=== PATIENT | male | born 1955 | race Caucasian/White ===

== ENCOUNTER 2018-10-08 02:00 | Inpatient (IN) | payer OTHER | END 2018-10-10 14:55 | disposition home or self-care (01) | LOC: ER 02:00 → PCU 3S 10-09 11:26 → ED HOLD 04:54 → CICU 2S 05:33 | DX: I21.4 Non-ST elevation (NSTEMI) myocardial infarction (principal); I10 Essential (primary) hypertension; J44.9 Chronic obstructive pulmonary disease, unspecified ==

== ENCOUNTER 2019-04-26 11:29 | Inpatient (IN) | payer OTHER ==
[~2019-04-26] VITALS: Ht 182.9 cm; Wt 111.3 kg
[~2019-04-26 11:29] MED LIST: ALBU8.5H8 INH; ASPI-611 PO; ATOR40TA PO; BUDE10.2 INH; FLO0.4C PO; METO75TA PO; NITR0.4T51 SL; TICA90TA PO
[2019-04-26] MEDS ORDERED: ipratropium/albuterol 3ml nebule NEB ONE (11:40)
[2019-04-26] MEDS ORDERED: albuterol 2.5 MG/3 ML nebule NEB ONE (11:40)
[2019-04-26 12:12] LABS: EOSINOPHILS # (AUTO) 0.5 X10'3 (0-0.9); EOSINOPHILS % (AUTO) 5.9 % (0-6); LYMPHOCYTES # (AUTO) 0.8 X10'3 (1.1-4.8); MEAN CORPUSCULAR HGB CONC 32.8 g/dL (33.0-36.5); MEAN CORPUSCULAR VOLUME 90.7 FL (78-98); MEAN PLATELET VOLUME 6.7 FL (7.4-10.4); MONOCYTES # (AUTO) 0.7 X10'3 (0-0.9)
[2019-04-26 12:15] LABS: BASOPHILS # (AUTO) 0.1 X10'3 (0-0.2); BASOPHILS % (AUTO) 0.7 % (0-1); HEMATOCRIT 41.5 % (42.0-52.0); HEMOGLOBIN 13.6 g/dl (14.0-17.9); LYMPHOCYTES % (AUTO) 8.6 % (21-51); MEAN CORPUSCULAR HEMOGLOBIN 29.8 PG (27.0-31.0); MONOCYTES % (AUTO) 7.6 % (2-12); NEUTROPHILS # (AUTO) 6.9 X10'3 (1.8-7.7); NEUTROPHILS % (AUTO) 77.2 % (42-75); PLATELET COUNT 186 X10'3 (140-440); RED BLOOD COUNT 4.58 X10'6 (4.70-6.10); RED CELL DISTRIBUTION WIDTH 14.4 % (11.5-14.5); WHITE BLOOD COUNT 8.9 X10'3 (4.5-11.0)
[2019-04-26 12:31] LABS: ALANINE AMINOTRANSFERASE 29 U/L (12-78); ALBUMIN 3.3 G/DL (3.4-5.0); ALKALINE PHOSPHATASE 78 IU/L (46-116); ANION GAP 7 (8-16); ASPARTATE AMINO TRANSFERASE 18 U/L (10-37); BILIRUBIN,TOTAL 0.4 MG/DL (0.1-1.0); BLOOD UREA NITROGEN 16 MG/DL (7-18); BUN/CREATININE RATIO 18.6 (5.4-32.0); CALCIUM 8.4 MG/DL (8.5-10.1); CHLORIDE 109 MMOL/L (99-107); CREATININE 0.86 MG/DL (0.60-1.10); GLUCOSE 103 MG/DL (70-104); POTASSIUM 4.4 MMOL/L (3.5-5.1); SODIUM 144 MMOL/L (135-145); TOTAL PROTEIN 6.5 G/DL (6.4-8.2); eGFR 90 ML/MIN
[2019-04-26 12:46] LABS: MAGNESIUM 1.9 MG/DL (1.5-2.4)
[2019-04-26 13:00] LABS: LIPASE 8639 U/L (73-393)
[2019-04-26] MEDS ORDERED: magnesium hydroxide 30ml (MOM) UD suspension PO PRN (13:00)
[2019-04-26] MEDS ORDERED: methylPREDNISolone sod succ 125mg/2ml vial IV ONE (13:00)
[2019-04-26] MEDS ORDERED: HYDROcodone/acetaminophen 5mg/325mg tablet PO PRN (13:00)
[2019-04-26] MEDS ORDERED: bisacodyl 10mg suppository rectal RC PRN (13:00)
[2019-04-26] MEDS ORDERED: HYDROcodone/acetaminophen 10/325mg tab PO PRN (13:00)
[2019-04-26] MEDS ORDERED: potassium Cl 20 mEq SR tablet PO PRN ×2 (13:00)
[2019-04-26] MEDS ORDERED: magnesium 4gm in 100ml NS 100 ML IV PRN (13:00)
[2019-04-26] MEDS ORDERED: magnesium Cl slow-release 64mg tablet PO PRN (13:00)
[2019-04-26] MEDS ORDERED: ondansetron/PF 4mg/2ml inj IV PRN (13:00)
[2019-04-26] MEDS ORDERED: mag hydrox/Alum hydrox/simeth 30ml oral suspension PO PRN (13:00)
[2019-04-26] MEDS ORDERED: metoclopramide 5 mg/ml inj IV PRN (13:00)
[2019-04-26] MEDS ORDERED: ipratropium/albuterol 3ml nebule NEB PRN (13:00)
[2019-04-26] MEDS ORDERED: magnesium 2GM in 50ml NS 50 ML IV PRN (13:00)
[2019-04-26] MEDS ORDERED: potassium CL 10mEq/100ml bag 100 ML IV PRN ×2 (13:00)
[2019-04-26] MEDS ORDERED: acetaminophen 325mg tablet PO PRN (13:00)
[2019-04-26] MEDS: K and/or MAG REPLACEMENT MC SCH (13:00)
[2019-04-26] MEDS: normal saline 1000ml 1,000 ML IV SCH ×3 (13:14→23:01)
[2019-04-26] MEDS ORDERED: regadenoson 0.4mg/5ml syringe IV PRN (14:15)
[2019-04-26] MEDS ORDERED: metoprolol tartrate 1mg/ml inj IV PRN (14:15)
[2019-04-26] MEDS ORDERED: nitroGLYCERIN 0.4mg SUBLingual tab SL PRN ×3 (14:15→14:20)
[2019-04-26] MEDS ORDERED: aminophylline 250mg/10ml inj. IV PRN (14:15)
[2019-04-26] MEDS: methylPREDNISolone sod succ 125mg/2ml vial IV SCH ×2 (14:48→20:44)
[2019-04-26] MEDS ORDERED: iohexol 300mg/ml 100ml inj. ONE (14:51)
[2019-04-26 15:00] VITALS: BP 129/77
[2019-04-26] MEDS: albuterol 2.5 MG/3 ML nebule NEB SCH ×2 (15:00→21:00)
[2019-04-26] MEDS: ipratropium/albuterol 3ml nebule NEB SCH ×3 (15:46→23:00)
--- NOTE | 2019-04-26 16:07 | NUR ---
PAGER ID: [phone] MESSAGE: [phone]. Pt's CT scan results are up. Thank You.
[2019-04-26] MEDS: acetaminophen 325mg tablet PO PRN (16:16)
[2019-04-26 16:25] LABS: PARTIAL THROMBOPLASTIN TIME 31 SECONDS (22-32)
--- NOTE | 2019-04-26 18:05 | NUR ---
Orienteer documentation: I have reviewed and agree with all interventions, assessments performed and documented by Veronica FERNANDEZ.
--- NOTE | 2019-04-26 18:22 | NUR ---
Problems reprioritized. Patient report given, questions answered & plan of care reviewed with Deisi FERNANDEZ.
[2019-04-26 19:00] VITALS: BP 104/82
[2019-04-26] MEDS ORDERED: non-formulary drug (Metoprolol Tartrate 1 TAB) PO SCH (20:00)
[2019-04-26] MEDS ORDERED: non-formulary drug (Budesonide/Formoterol Fumarate (Symbicort 160-4.5 Mcg Inhaler) 2 PUFFS INH SCH (20:00)
[2019-04-26] MEDS ORDERED: non-formulary drug (Aspirin (Aspir 81) 1 TAB) PO SCH (20:00)
[2019-04-26] MEDS: budesonide 0.5mg/2ml UD nebule IH SCH (20:11)
[2019-04-26] MEDS: metoprolol tartrate 25mg tablet PO SCH (20:43)
[2019-04-26] MEDS: aspirin 81mg tablet.DR PO SCH (20:43)
[2019-04-26] MEDS: ticagrelor 90mg tablet PO SCH (20:43)
[2019-04-26] MEDS ORDERED: temazepam 15mg capsule PO PRN (21:00)
[2019-04-26] MEDS ORDERED: benzonatate 100mg capsule PO PRN (22:35)
--- NOTE | 2019-04-26 22:40 | NUR ---
PATIENT REQUESTING COUDH DROPS-- MD NOTIFIED AND ORDERS RECEIVED
[2019-04-26 23:00] VITALS: BP 115/64
[2019-04-27] MEDS: methylPREDNISolone sod succ 125mg/2ml vial IV SCH ×4 (02:09→21:44)
[2019-04-27 03:00] VITALS: BP 140/86
[2019-04-27 05:32] LABS: HEMATOCRIT 40.6 % (42.0-52.0); HEMOGLOBIN 13.5 g/dl (14.0-17.9); MEAN CORPUSCULAR HEMOGLOBIN 30.2 PG (27.0-31.0); MEAN CORPUSCULAR HGB CONC 33.2 g/dL (33.0-36.5); MEAN PLATELET VOLUME 7.3 FL (7.4-10.4); PLATELET COUNT 173 X10'3 (140-440); RED BLOOD COUNT 4.46 X10'6 (4.70-6.10); RED CELL DISTRIBUTION WIDTH 14.5 % (11.5-14.5); WHITE BLOOD COUNT 7.4 X10'3 (4.5-11.0)
[2019-04-27 05:37] LABS: ALBUMIN 3.1 G/DL (3.4-5.0); ANION GAP 8 (8-16); BLOOD UREA NITROGEN 13 MG/DL (7-18); BUN/CREATININE RATIO 20.3 (5.4-32.0); CALCIUM 8.3 MG/DL (8.5-10.1); CHLORIDE 112 MMOL/L (99-107); CHOL/HDL RATIO 2.6 (0.00-4.99); CHOLESTEROL 114 MG/DL (0-200); CREATININE 0.64 MG/DL (0.60-1.10); GLUCOSE 117 MG/DL (70-104); HDL CHOLESTEROL 44 MG/DL (35-60); LDL CHOLESTEROL 60 MG/DL (50-100); MAGNESIUM 1.9 MG/DL (1.5-2.4); PHOSPHORUS 2.9 MG/DL (2.3-4.5); POTASSIUM 4.2 MMOL/L (3.5-5.1); SODIUM 144 MMOL/L (135-145); TOTAL CARBON DIOXIDE 24.3 MMOL/L (24-32); TRIGLYCERIDES 52 MG/DL (20-135); eGFR > 90 ML/MIN
[2019-04-27 06:00] VITALS: BP 133/72
--- NOTE | 2019-04-27 06:49 | NUR ---
Patient in room PCU 3013. I have received report from Deisi and had the opportunity to ask questions and assume patient care.
[2019-04-27] MEDS: ipratropium/albuterol 3ml nebule NEB SCH ×5 (07:34→23:00)
[2019-04-27] MEDS: budesonide 0.5mg/2ml UD nebule IH SCH ×2 (07:34→19:53)
[2019-04-27] MEDS: aspirin 81mg tablet.DR PO SCH ×2 (07:38→21:42)
[2019-04-27] MEDS: atorvastatin 20mg tablet PO SCH (07:39)
[2019-04-27] MEDS: tamsulosin 0.4mg capsule PO SCH (07:39)
[2019-04-27] MEDS: ticagrelor 90mg tablet PO SCH ×2 (07:40→21:43)
[2019-04-27] MEDS: nitroGLYCERIN 0.4mg/hour patch TD SCH (07:43)
[2019-04-27] MEDS ORDERED: non-formulary drug (Atorvastatin Calcium* (Lipitor*) 1 TAB) PO SCH (08:00)
[2019-04-27] MEDS: K and/or MAG REPLACEMENT MC SCH (08:00)
[2019-04-27] MEDS: enoxaparin 40mg/0.4ml syringe SUBCUT SCH (08:03)
[2019-04-27] MEDS: metoprolol tartrate 25mg tablet PO SCH ×2 (08:04→21:43)
[2019-04-27 10:31] LABS: AMYLASE 75 U/L (25-115)
[2019-04-27] MEDS: normal saline 1000ml 1,000 ML IV SCH ×2 (10:48→21:44)
[2019-04-27 11:00] VITALS: BP 121/70
--- NOTE | 2019-04-27 13:36 | NUR ---
Page sent: [id number] Yosef Sifuentes. Patient is requesting a breathing treatment. Thank you REBECCA Schmid [phone]
[2019-04-27] MEDS: acetaminophen 325mg tablet PO PRN (16:57)
[2019-04-27] MEDS ORDERED: CefTRIAXone/D5W-Rocephin 1gm 50 ML IV ONE (17:30)
--- NOTE | 2019-04-27 18:19 | NUR ---
Orientee documentation: I have reviewed and agree with interventions, assessments performed and documented by Sharmaine MAYA. Orientee Medication Administration: For this medication-pass time frame, medication were reviewed, dispensed, administered and documented per hospital policy by Sharmaine Maya.
--- NOTE | 2019-04-27 18:28 | NUR ---
Problems reprioritized. Patient report given, questions answered & plan of care reviewed with Michelle. Patient in stable condition.
--- NOTE | 2019-04-27 18:30 | NUR ---
Patient in room PCU 3013. I have received report from Mariola FERNANDEZ and had the opportunity to ask questions and assume patient care with Maggie FERNANDEZ.
[2019-04-27 19:00] VITALS: BP 140/68
[2019-04-27] MEDS: albuterol 2.5 MG/3 ML nebule NEB SCH (19:51)
[2019-04-27 23:00] VITALS: BP 127/75
[2019-04-28] VITALS (13 sets, daily range): BP systolic 91–151; BP diastolic 53–85
[2019-04-28] MEDS: methylPREDNISolone sod succ 125mg/2ml vial IV SCH ×4 (02:17→20:10)
[2019-04-28] MEDS: albuterol 2.5 MG/3 ML nebule NEB SCH (02:40)
[2019-04-28 06:05] LABS: HEMATOCRIT 40.6 % (42.0-52.0); HEMOGLOBIN 13.5 g/dl (14.0-17.9); MEAN CORPUSCULAR HEMOGLOBIN 29.9 PG (27.0-31.0); MEAN CORPUSCULAR HGB CONC 33.2 g/dL (33.0-36.5); MEAN CORPUSCULAR VOLUME 90.1 FL (78-98); MEAN PLATELET VOLUME 6.9 FL (7.4-10.4); PLATELET COUNT 193 X10'3 (140-440); RED CELL DISTRIBUTION WIDTH 14.2 % (11.5-14.5); WHITE BLOOD COUNT 11.8 X10'3 (4.5-11.0)
[2019-04-28 06:13] LABS: ANION GAP 6 (8-16); BLOOD UREA NITROGEN 12 MG/DL (7-18); CALCIUM 8.3 MG/DL (8.5-10.1); CHLORIDE 112 MMOL/L (99-107); CREATININE 0.75 MG/DL (0.60-1.10); GLUCOSE 142 MG/DL (70-104); PHOSPHORUS 3.4 MG/DL (2.3-4.5); POTASSIUM 4.1 MMOL/L (3.5-5.1); SODIUM 145 MMOL/L (135-145); TOTAL CARBON DIOXIDE 26.6 MMOL/L (24-32); eGFR > 90 ML/MIN
--- NOTE | 2019-04-28 06:26 | NUR ---
Patient in room PCU 3011. I have received report from Michelle FERNANDEZ and had the opportunity to ask questions and assume patient care.
--- NOTE | 2019-04-28 06:30 | NUR ---
pt rested through night, no complaints
--- NOTE | 2019-04-28 06:33 | NUR ---
Problems reprioritized. Patient report given, questions answered & plan of care reviewed with kd FERNANDEZ. pt resting, no signs of distress.
--- NOTE | 2019-04-28 06:43 | NUR ---
Patient in room PCU 3013. I have received report from Michelle and had the opportunity to ask questions and assume patient care.
[2019-04-28] MEDS: ticagrelor 90mg tablet PO SCH ×2 (07:19→20:12)
[2019-04-28] MEDS: tamsulosin 0.4mg capsule PO SCH (07:19)
[2019-04-28] MEDS: metoprolol tartrate 25mg tablet PO SCH ×2 (07:19→20:13)
[2019-04-28] MEDS: atorvastatin 20mg tablet PO SCH (07:20)
[2019-04-28] MEDS: aspirin 81mg tablet.DR PO SCH ×2 (07:20→20:12)
[2019-04-28] MEDS: CefTRIAXone/D5W-Rocephin 1gm 50 ML IV SCH (07:21)
[2019-04-28] MEDS: nitroGLYCERIN 0.4mg/hour patch TD SCH (07:21)
[2019-04-28] MEDS: enoxaparin 40mg/0.4ml syringe SUBCUT SCH (07:22)
[2019-04-28] MEDS: K and/or MAG REPLACEMENT MC SCH (08:00)
[2019-04-28] MEDS: ipratropium/albuterol 3ml nebule NEB SCH ×5 (08:03→23:20)
[2019-04-28] MEDS: budesonide 0.5mg/2ml UD nebule IH SCH (08:03)
[2019-04-28] MEDS: normal saline 1000ml 1,000 ML IV SCH ×2 (09:07→20:09)
[2019-04-28] MEDS: azithromycin 250mg tablet PO SCH (10:18)
--- NOTE | 2019-04-28 10:36 | NUR ---
Page sent: [id number] Bear Navas - Patient has a new order for an abdominal ultrasound, BALWINDER
--- NOTE | 2019-04-28 17:14 | NUR ---
Page sent PAGER ID: [phone] MESSAGE: [phone] Yosef Sifuentes. Patient is requesting to eat. Arline scan results are up. Can he eat? Thank you Thao WOODRUFF
--- NOTE | 2019-04-28 18:12 | NUR ---
Problems reprioritized. Patient report given, questions answered & plan of care reviewed with
--- NOTE | 2019-04-28 18:22 | NUR ---
Orientee documentation: I have reviewed and agree with interventions, assessments performed and documented by Sharmaine FERNANDEZ. Orientee Medication Administration: For this medication-pass time frame, medication were reviewed, dispensed, administered and documented per hospital policy by Sharmaine FERNANDEZ.
--- NOTE | 2019-04-28 18:30 | NUR ---
Patient in room PCU 3013. I have received report from day shift RN and had the opportunity to ask questions and assume patient care with Maggie FERNANDEZ.
[2019-04-29] MEDS: methylPREDNISolone sod succ 125mg/2ml vial IV SCH ×4 (01:37→19:56)
[2019-04-29 02:00] VITALS: BP 134/72
[2019-04-29] MEDS: ipratropium/albuterol 3ml nebule NEB SCH ×6 (04:00→23:05)
--- NOTE | 2019-04-29 05:00 | NUR ---
Patient rested all night, no complaints
[2019-04-29 05:20] LABS: HEMATOCRIT 41.3 % (42.0-52.0); HEMOGLOBIN 13.7 g/dl (14.0-17.9); MEAN CORPUSCULAR HEMOGLOBIN 30.2 PG (27.0-31.0); MEAN CORPUSCULAR HGB CONC 33.2 g/dL (33.0-36.5); MEAN CORPUSCULAR VOLUME 90.9 FL (78-98); PLATELET COUNT 186 X10'3 (140-440); RED BLOOD COUNT 4.54 X10'6 (4.70-6.10); RED CELL DISTRIBUTION WIDTH 14.2 % (11.5-14.5); WHITE BLOOD COUNT 9.1 X10'3 (4.5-11.0)
[2019-04-29 05:31] LABS: ALBUMIN 2.8 G/DL (3.4-5.0); ANION GAP 7 (8-16); BLOOD UREA NITROGEN 14 MG/DL (7-18); BUN/CREATININE RATIO 16.7 (5.4-32.0); CALCIUM 8.4 MG/DL (8.5-10.1); CHLORIDE 111 MMOL/L (99-107); CREATININE 0.84 MG/DL (0.60-1.10); GLUCOSE 145 MG/DL (70-104); MAGNESIUM 2.1 MG/DL (1.5-2.4); PHOSPHORUS 3.2 MG/DL (2.3-4.5); SODIUM 146 MMOL/L (135-145); TOTAL CARBON DIOXIDE 28.4 MMOL/L (24-32); eGFR > 90 ML/MIN
--- NOTE | 2019-04-29 06:08 | NUR ---
Problems reprioritized. Patient report given, questions answered & plan of care reviewed with Kristy FERNANDEZ. orientee documentation: I have reviewed and agree with all interventions, assessments performed and documented by Maggie FERNANDEZ.
--- NOTE | 2019-04-29 06:12 | NUR ---
Patient in room PCU 3013. I have received report from REBECCA Martinez and had the opportunity to ask questions and assume patient care.
[2019-04-29 07:00] VITALS: BP 154/68
[2019-04-29] MEDS: normal saline 1000ml 1,000 ML IV SCH (07:49)
[2019-04-29] MEDS: K and/or MAG REPLACEMENT MC SCH (08:00)
--- NOTE | 2019-04-29 08:20 | NUR ---
Patient went in to atrial flutter, rate 170's. Complains of some chest pain (discomfort) and rt elbow discomfort. No sob. pain 12/17. Dr. Arreola paged and informed.
--- NOTE | 2019-04-29 08:34 | NUR ---
MESSAGE: Mr. Sifuentes RM 3014P In atrial flutter, rate 170's. Complains of sternal discomfort, rt elbow discomfort 12/17. BP 144/82. Kristy u ext [phone]
--- NOTE | 2019-04-29 08:50 | NUR ---
Mr. Sifuentes 3012B - Converted to NSR, rate 110's. Thanks, Kristy [facility] X [phone]
--- NOTE | 2019-04-29 08:50 | NUR ---
Seen by PA and orders written.
[2019-04-29] MEDS: CefTRIAXone/D5W-Rocephin 1gm 50 ML IV SCH (08:59)
[2019-04-29] MEDS: tamsulosin 0.4mg capsule PO SCH (09:00)
[2019-04-29] MEDS: atorvastatin 20mg tablet PO SCH (09:01)
[2019-04-29] MEDS: azithromycin 250mg tablet PO SCH (09:01)
[2019-04-29] MEDS: enoxaparin 40mg/0.4ml syringe SUBCUT SCH (09:01)
[2019-04-29] MEDS: nitroGLYCERIN 0.4mg/hour patch TD SCH (09:02)
[2019-04-29] MEDS: apixaban 5mg tablet PO SCH ×2 (09:13→19:53)
[2019-04-29] MEDS: carVEDilol 12.5mg tablet PO SCH ×2 (09:14→19:53)
[2019-04-29] MEDS: clopidogrel 75mg tablet PO SCH (09:14)
[2019-04-29 11:00] VITALS: BP 144/80
[2019-04-29 15:00] VITALS: BP 117/75
--- NOTE | 2019-04-29 18:20 | NUR ---
Problems reprioritized. Patient report given, questions answered & plan of care reviewed with REBECCA Samaniego. Addendum: 04/29/19 at 1824 by Kristy Zayas RN Report given to rita Thorpe.
--- NOTE | 2019-04-29 18:25 | NUR ---
Patient in room PCU 3013. I have received report from Kristy FERNANDEZ and had the opportunity to ask questions and assume patient care.
--- NOTE | 2019-04-29 18:30 | NUR ---
patient reported 5/10 pain and headache. patient requested tylenol.
[2019-04-29 19:00] VITALS: BP 120/63
--- NOTE | 2019-04-29 19:30 | NUR ---
reassessed patient's pain level. patient reported pain 0/10. patient no longer has a headache.
[2019-04-29] MEDS: acetaminophen 325mg tablet PO PRN (20:04)
[2019-04-29 22:00] VITALS: BP 124/80
--- NOTE | 2019-04-29 23:43 | NUR ---
patient converted to a fib, reported to Dr. Patterson. He's aware the patient is on eliquis
[2019-04-30] MEDS: methylPREDNISolone sod succ 125mg/2ml vial IV SCH ×2 (01:13→07:42)
[2019-04-30 02:00] VITALS: BP 117/74
[2019-04-30] MEDS: ipratropium/albuterol 3ml nebule NEB SCH ×3 (03:10→12:00)
--- NOTE | 2019-04-30 05:58 | NUR ---
Orientee documentation: I have reviewed and agree with all interventions, assessments performed and documented by Maggie FERNANDEZ .
[2019-04-30 06:00] VITALS: BP 148/90
[2019-04-30 06:06] LABS: HEMATOCRIT 41.9 % (42.0-52.0); MEAN CORPUSCULAR HEMOGLOBIN 30.4 PG (27.0-31.0); MEAN CORPUSCULAR HGB CONC 33.5 g/dL (33.0-36.5); MEAN CORPUSCULAR VOLUME 90.9 FL (78-98); MEAN PLATELET VOLUME 7.3 FL (7.4-10.4); PLATELET COUNT 190 X10'3 (140-440); RED BLOOD COUNT 4.61 X10'6 (4.70-6.10); RED CELL DISTRIBUTION WIDTH 14.5 % (11.5-14.5)
--- NOTE | 2019-04-30 06:07 | NUR ---
Problems reprioritized. Patient report given to Kristy FERNANDEZ, questions answered & plan of care reviewed with Kristy FERNANDEZ.
--- NOTE | 2019-04-30 06:20 | NUR ---
Patient in room PCU 3013. I have received report from REBECCA Serrano and had the opportunity to ask questions and assume patient care.
[2019-04-30 06:38] LABS: ALBUMIN 2.9 G/DL (3.4-5.0); ANION GAP 8 (8-16); BLOOD UREA NITROGEN 17 MG/DL (7-18); BUN/CREATININE RATIO 19.8 (5.4-32.0); CALCIUM 8.5 MG/DL (8.5-10.1); CHLORIDE 109 MMOL/L (99-107); CREATININE 0.86 MG/DL (0.60-1.10); GLUCOSE 149 MG/DL (70-104); MAGNESIUM 2.2 MG/DL (1.5-2.4); PHOSPHORUS 3.8 MG/DL (2.3-4.5); POTASSIUM 3.9 MMOL/L (3.5-5.1); SODIUM 144 MMOL/L (135-145); eGFR 90 ML/MIN
[2019-04-30] MEDS: nitroGLYCERIN 0.4mg/hour patch TD SCH (07:42)
[2019-04-30] MEDS: atorvastatin 20mg tablet PO SCH (07:42)
[2019-04-30] MEDS: clopidogrel 75mg tablet PO SCH (07:43)
[2019-04-30] MEDS: apixaban 5mg tablet PO SCH (07:43)
[2019-04-30] MEDS: azithromycin 250mg tablet PO SCH (07:43)
[2019-04-30] MEDS: carVEDilol 12.5mg tablet PO SCH (07:43)
[2019-04-30] MEDS: CefTRIAXone/D5W-Rocephin 1gm 50 ML IV SCH (07:43)
[2019-04-30] MEDS: tamsulosin 0.4mg capsule PO SCH (07:43)
[2019-04-30] MEDS: K and/or MAG REPLACEMENT MC SCH (07:44)
[2019-04-30] MEDS ORDERED: CARV-50 PO (10:53)
[2019-04-30] MEDS ORDERED: PRED10TA23 PO (10:53)
[2019-04-30] MEDS ORDERED: APIX5TAB3 PO (10:53)
[2019-04-30] MEDS ORDERED: CEFD300C3 PO (10:53)
[2019-04-30] MEDS ORDERED: ISOS30TA6 PO (10:56)
[2019-04-30 11:00] VITALS: BP 116/67
== END 2019-04-30 13:20 | disposition home or self-care (01) | DRG 189 ==
LOC: ER 11:30 → OBSVTOIN 13:50 → PCU 3S 13:50 → CMPBEDREQ 04-27 21:12
PROVIDERS: ADMIT Family Medicine; ATTEND Family Medicine
PROC: 4A02XM4 Measurement of Cardiac Total Activity, External Approach (ICD-10-PCS; principal; 2019-04-28)
PROC: 3E033HZ Introduction of Radioactive Substance into Peripheral Vein, Percutaneous Approach (ICD-10-PCS; 2019-04-28)
DX: J96.90 Respiratory failure, unspecified, unspecified whether with hypoxia or hypercapnia (principal); K85.90 Acute pancreatitis without necrosis or infection, unspecified; J44.1 Chronic obstructive pulmonary disease with (acute) exacerbation; I48.92 Unspecified atrial flutter; K21.9 Gastro-esophageal reflux disease without esophagitis; E78.00 Pure hypercholesterolemia, unspecified; E78.5 Hyperlipidemia, unspecified; G40.909 Epilepsy, unspecified, not intractable, without status epilepticus; I10 Essential (primary) hypertension; G89.29 Other chronic pain; K76.9 Liver disease, unspecified; R74.8 Abnormal levels of other serum enzymes; I25.119 Atherosclerotic heart disease of native coronary artery with unspecified angina pectoris; I48.0 Paroxysmal atrial fibrillation; N40.0 Benign prostatic hyperplasia without lower urinary tract symptoms; Z87.891 Personal history of nicotine dependence; I25.2 Old myocardial infarction; Z90.49 Acquired absence of other specified parts of digestive tract; Z93.3 Colostomy status; Z95.5 Presence of coronary angioplasty implant and graft
CPT/HCPCS: 36415; 71045; 71260; 74177; 76700; 78452; 80048; 80053; 80061; 82150; 83690; 83735; 83880; 84100; 84484; 85025; 85027; 85610; 85730; 87040; 87070; 87081; 93005; 93017; 93306; 94640; 94667; 94760; 96374; 99285; A9500; G0378; J0696; J1650; J2785; J2930; J7030; J7626; Q9967

== ENCOUNTER 2019-06-04 12:42 | Inpatient (IN) | payer OTHER ==
[~2019-06-04] VITALS: Ht 193 cm; Wt 115.0 kg
[~2019-06-04 12:42] MED LIST changes: +APIX5TAB3 PO; +CARV-50 PO; -METO75TA PO
[2019-06-04] MEDS ORDERED: ipratropium/albuterol 3ml nebule NEB ONE (12:55)
[2019-06-04] MEDS ORDERED: methylPREDNISolone sod succ 125mg/2ml vial IV ONE (13:00)
[2019-06-04 13:14] LABS: BASOPHILS # (AUTO) 0.1 X10'3 (0-0.2); BASOPHILS % (AUTO) 0.8 % (0-1); EOSINOPHILS # (AUTO) 0.3 X10'3 (0-0.9); EOSINOPHILS % (AUTO) 4.2 % (0-6); HEMATOCRIT 42.8 % (42.0-52.0); HEMOGLOBIN 14.1 g/dl (14.0-17.9); LYMPHOCYTES # (AUTO) 0.8 X10'3 (1.1-4.8); LYMPHOCYTES % (AUTO) 11.6 % (21-51); MEAN CORPUSCULAR HEMOGLOBIN 29.9 PG (27.0-31.0); MEAN CORPUSCULAR VOLUME 90.8 FL (78-98); MEAN PLATELET VOLUME 6.7 FL (7.4-10.4); MONOCYTES # (AUTO) 0.8 X10'3 (0-0.9); MONOCYTES % (AUTO) 11.3 % (2-12); NEUTROPHILS # (AUTO) 5.1 X10'3 (1.8-7.7); NEUTROPHILS % (AUTO) 72.1 % (42-75); PLATELET COUNT 202 X10'3 (140-440); RED BLOOD COUNT 4.71 X10'6 (4.70-6.10); RED CELL DISTRIBUTION WIDTH 14.7 % (11.5-14.5); WHITE BLOOD COUNT 7.1 X10'3 (4.5-11.0)
[2019-06-04] MEDS ORDERED: iohexol 350MG/ML 100ml bottle IV ONE ×3 (13:28→13:55)
[2019-06-04 13:29] LABS: PARTIAL THROMBOPLASTIN TIME 30 SECONDS (22-32)
[2019-06-04 13:39] LABS: ALANINE AMINOTRANSFERASE 30 U/L (12-78); ALBUMIN 3.8 G/DL (3.4-5.0); ALBUMIN/GLOBULIN RATIO 1.1 (1.1-1.5); ANION GAP 9 (8-16); ASPARTATE AMINO TRANSFERASE 23 U/L (10-37); BILIRUBIN,TOTAL 0.7 MG/DL (0.1-1.0); BLOOD UREA NITROGEN 14 MG/DL (7-18); BUN/CREATININE RATIO 15.9 (5.4-32.0); CALCIUM 9.2 MG/DL (8.5-10.1); CHLORIDE 104 MMOL/L (99-107); CREATININE 0.88 MG/DL (0.60-1.10); GLUCOSE 106 MG/DL (70-104); POTASSIUM 4.3 MMOL/L (3.5-5.1); SODIUM 140 MMOL/L (135-145); TOTAL CARBON DIOXIDE 26.6 MMOL/L (24-32); TOTAL PROTEIN 7.3 G/DL (6.4-8.2); eGFR 88 ML/MIN
--- NOTE | 2019-06-04 13:41 | NUR ---
PT IS IN CT
[2019-06-04 13:47] LABS: MAGNESIUM 2.1 MG/DL (1.5-2.4)
[2019-06-04 14:18] LABS: ALKALINE PHOSPHATASE 90 IU/L (46-116)
[2019-06-04] MEDS ORDERED: TRAM50TA2 PO (14:28)
[2019-06-04 14:41] LABS: CLARITY,URINE CLEAR (Clear); COLOR,URINE YELLOW (Yellow); GLUCOSE, URINE NEGATIVE (Neg); KETONES,URINE NEGATIVE (Neg); LEUKOCYTE ESTERASE ,URINE NEGATIVE (Neg); NITRITES, URINE NEGATIVE (Neg); OCCULT BLOOD,URINE NEGATIVE (Neg); PH,URINE 5.5 (4.8-8.0); PROTEIN,URINE NEGATIVE (Neg); UA COLLECTION TYPE CLN CATCH MIDSTREAM; UROBILINOGEN,URINE 0.2 E.U/dL (0.2-1.0)
[2019-06-04] MEDS ORDERED: levoFLOXACIN-Levaquin 750MG/D5 150 ML IV ONE (15:05)
[2019-06-04] MEDS ORDERED: CARV6.252 PO (15:31)
[2019-06-04] MEDS ORDERED: CLOP75TA15 PO (15:37)
[2019-06-04] MEDS ORDERED: ATOR40TA71 PO (15:37)
[2019-06-04] MEDS ORDERED: TIOT4MIS3 IH (15:37)
[2019-06-04] MEDS ORDERED: DABI150C PO (15:37)
[2019-06-04] MEDS ORDERED: ISOS30TA6 PO (15:37)
[2019-06-04] MEDS ORDERED: NITR0.4T48 SL (15:37)
[2019-06-04] MEDS ORDERED: mag hydrox/Alum hydrox/simeth 30ml oral suspension PO PRN (16:55)
[2019-06-04] MEDS ORDERED: magnesium hydroxide 30ml (MOM) UD suspension PO PRN (16:55)
[2019-06-04] MEDS ORDERED: morphine 2 MG/ML inj. syringe IV PRN ×2 (16:55)
[2019-06-04] MEDS ORDERED: potassium CL 10mEq/100ml bag 100 ML IV PRN ×2 (16:55)
[2019-06-04] MEDS ORDERED: non-formulary drug (Albuterol Sulfate (Proair Hfa) 2 PUFFS) INH PRN (16:55)
[2019-06-04] MEDS ORDERED: ondansetron/PF 4mg/2ml inj IV PRN (16:55)
[2019-06-04] MEDS ORDERED: diphenhydrAMINE 25mg capsule PO PRN (16:55)
[2019-06-04] MEDS ORDERED: potassium Cl 20 mEq SR tablet PO PRN ×2 (16:55)
[2019-06-04] MEDS ORDERED: guaiFENesin/DM/phenylephrine syrup 120ml bottle PO PRN (16:55)
[2019-06-04] MEDS ORDERED: HYDROcodone/acetaminophen 5mg/325mg tablet PO PRN (16:55)
[2019-06-04] MEDS ORDERED: magnesium 4gm in 100ml NS 100 ML IV PRN (16:55)
[2019-06-04] MEDS ORDERED: nitroGLYCERIN 0.4mg SUBLingual tab SL PRN (16:55)
[2019-06-04] MEDS ORDERED: acetaminophen 325mg tablet PO PRN ×2 (16:55)
[2019-06-04] MEDS ORDERED: bisacodyl 10mg suppository rectal RC PRN (16:55)
[2019-06-04] MEDS ORDERED: magnesium Cl slow-release 64mg tablet PO PRN (16:55)
[2019-06-04] MEDS ORDERED: diphenhydrAMINE 50 mg/ml inj IV PRN (16:55)
[2019-06-04] MEDS ORDERED: acetaminophen 650mg rectal suppository RC PRN (16:55)
[2019-06-04] MEDS ORDERED: magnesium 2GM in 50ml NS 50 ML IV PRN (16:55)
[2019-06-04] MEDS ORDERED: albuterol 2.5 MG/3 ML nebule NEB PRN (17:00)
[2019-06-04] MEDS: normal saline 1000ml 1,000 ML IV SCH (17:20)
[2019-06-04] MEDS: K and/or MAG REPLACEMENT MC SCH (18:37)
[2019-06-04] MEDS: ipratropium/albuterol 3ml nebule NEB SCH ×2 (18:51→23:09)
[2019-06-04 19:25] VITALS: BP 135/76
--- NOTE | 2019-06-04 19:25 | NUR ---
PATIENT ADMITTED TO ROOM 354A FROM ER FOR COPD EXACERBATION. PLACED COMFORTABLE IN BED. VITAL SIGNS TAKEN AND RECORDED.
[2019-06-04] MEDS ORDERED: temazepam 15mg capsule PO PRN (21:00)
[2019-06-04] MEDS: methylPREDNISolone sod succ 125mg/2ml vial IV SCH (21:42)
[2019-06-04] MEDS: dabigatran 150mg capsule PO SCH (21:43)
[2019-06-04] MEDS: carvedilol 6.25mg tablet PO SCH (21:43)
[2019-06-05] VITALS: BP 136/73
[2019-06-05] MEDS: normal saline 1000ml 1,000 ML IV SCH ×3 (02:29→23:59)
[2019-06-05] MEDS: methylPREDNISolone sod succ 125mg/2ml vial IV SCH ×4 (02:29→21:08)
[2019-06-05] MEDS: ipratropium/albuterol 3ml nebule NEB SCH ×6 (03:02→23:47)
[2019-06-05 05:57] LABS: BASOPHILS % (AUTO) 0.1 % (0-1); EOSINOPHILS % (AUTO) 0 % (0-6); HEMOGLOBIN 13.7 g/dl (14.0-17.9); LYMPHOCYTES # (AUTO) 0.5 X10'3 (1.1-4.8); LYMPHOCYTES % (AUTO) 7.1 % (21-51); MEAN CORPUSCULAR HEMOGLOBIN 30.1 PG (27.0-31.0); MEAN CORPUSCULAR HGB CONC 33.5 g/dL (33.0-36.5); MEAN CORPUSCULAR VOLUME 89.7 FL (78-98); MEAN PLATELET VOLUME 6.9 FL (7.4-10.4); MONOCYTES # (AUTO) 0.1 X10'3 (0-0.9); MONOCYTES % (AUTO) 1.4 % (2-12); NEUTROPHILS # (AUTO) 5.8 X10'3 (1.8-7.7); NEUTROPHILS % (AUTO) 91.4 % (42-75); PLATELET COUNT 206 X10'3 (140-440); RED BLOOD COUNT 4.57 X10'6 (4.70-6.10); RED CELL DISTRIBUTION WIDTH 14.7 % (11.5-14.5); WHITE BLOOD COUNT 6.4 X10'3 (4.5-11.0)
[2019-06-05 06:03] LABS: ALANINE AMINOTRANSFERASE 26 U/L (12-78); ALBUMIN 3.1 G/DL (3.4-5.0); ALBUMIN/GLOBULIN RATIO 0.9 (1.1-1.5); ALKALINE PHOSPHATASE 83 IU/L (46-116); ANION GAP 7 (8-16); ASPARTATE AMINO TRANSFERASE 16 U/L (10-37); BILIRUBIN,TOTAL 0.2 MG/DL (0.1-1.0); BLOOD UREA NITROGEN 16 MG/DL (7-18); BUN/CREATININE RATIO 20.8 (5.4-32.0); CALCIUM 8.9 MG/DL (8.5-10.1); CHLORIDE 108 MMOL/L (99-107); CHOL/HDL RATIO 2.6 (0.00-4.99); CHOLESTEROL 130 MG/DL (0-200); CREATININE 0.77 MG/DL (0.60-1.10); GLUCOSE 181 MG/DL (70-104); HDL CHOLESTEROL 50 MG/DL (35-60); LDL CHOLESTEROL 68 MG/DL (50-100); MAGNESIUM 2.2 MG/DL (1.5-2.4); PHOSPHORUS 3.6 MG/DL (2.3-4.5); POTASSIUM 4.3 MMOL/L (3.5-5.1); SODIUM 143 MMOL/L (135-145); TOTAL CARBON DIOXIDE 27.7 MMOL/L (24-32); TOTAL PROTEIN 6.4 G/DL (6.4-8.2); TRIGLYCERIDES 36 MG/DL (20-135); eGFR > 90 ML/MIN
--- NOTE | 2019-06-05 06:30 | NUR ---
Problems reprioritized. Patient report given, questions answered & plan of care reviewed with JACQUELYN FERNANDEZ.
--- NOTE | 2019-06-05 06:53 | NUR ---
Patient in room MALISSA 354. I have received report from CYN FERNANDEZ and had the opportunity to ask questions and assume patient care.
[2019-06-05 07:00] VITALS: BP 120/65
--- NOTE | 2019-06-05 07:23 | NUR ---
Patient in room MALISSA 354. I have received report from Sahara FERNANDEZ and had the opportunity to ask questions and assume patient care.
[2019-06-05] MEDS: tamsulosin 0.4mg capsule PO SCH (07:42)
[2019-06-05] MEDS: carvedilol 6.25mg tablet PO SCH ×2 (07:42→21:04)
[2019-06-05] MEDS: isosorbide mononitrate 30mg tab.SR.24H PO SCH (07:43)
[2019-06-05] MEDS: atorvastatin 20mg tablet PO SCH (07:43)
[2019-06-05] MEDS: clopidogrel 75mg tablet PO SCH (07:43)
[2019-06-05] MEDS: dabigatran 150mg capsule PO SCH ×2 (07:50→21:04)
[2019-06-05] MEDS ORDERED: non-formulary drug (Tiotropium Br/Olodaterol HCl (Stiolto Respimat Inhal Spray) 2 PUFFS) IH SCH (08:00)
[2019-06-05] MEDS: K and/or MAG REPLACEMENT MC SCH (08:00)
[2019-06-05] MEDS ORDERED: non-formulary drug (Atorvastatin Calcium 1 TAB) PO SCH (08:00)
[2019-06-05] MEDS ORDERED: levoFLOXACIN-Levaquin 750MG/D5 150 ML IV SCH (08:00)
[2019-06-05] MEDS ORDERED: STIOLTO RESPIMAT IH SCH (08:00)
[2019-06-05 11:00] VITALS: BP 147/85
[2019-06-05] MEDS: guaiFENesin/DM 10ml UD oral syrup PO PRN ×2 (11:40→21:04)
[2019-06-05] MEDS: HYDROcodone/acetaminophen 10/325mg tab PO PRN ×2 (16:32→21:04)
--- NOTE | 2019-06-05 16:33 | NUR ---
patient complaining of 3/10 dull chest pAIN. protocol folllowed. STAT EKG ordered read by DR Neal and ICU charge nurse Jesica. No new orders, patient stated following this that his pain was now minimal / but that he had a headache. Medicated with Putnam 10mg ,VS B/P 131/82,o2 88% on 2L Increased to 3L 90% observed. trmp 98.6 HR 109 Resp 18. will continue to monitor. DR Arreola aware, no new orders.
[2019-06-05 18:00] VITALS: BP 171/84
--- NOTE | 2019-06-05 18:39 | NUR ---
Problems reprioritized. Patient report given, questions answered & plan of care reviewed with Sahara FERNANDEZ.
--- NOTE | 2019-06-05 18:40 | NUR ---
Patient in room MALISSA 354. I have received report from JACQUELYN FERNANDEZ AND MARIA ELENA RN and had the opportunity to ask questions and assume patient care.
[2019-06-05] MEDS: lactobacillus rhamnosus 10,000 MMU CELLS/CAPSULE PO SCH (21:05)
[2019-06-06] VITALS: BP 138/83
[2019-06-06] MEDS: methylPREDNISolone sod succ 125mg/2ml vial IV SCH ×3 (02:07→14:10)
[2019-06-06] MEDS: ipratropium/albuterol 3ml nebule NEB SCH ×3 (03:03→11:16)
[2019-06-06 06:18] LABS: BASOPHILS % (AUTO) 0.1 % (0-1); EOSINOPHILS % (AUTO) 0 % (0-6); HEMATOCRIT 38.5 % (42.0-52.0); LYMPHOCYTES # (AUTO) 0.4 X10'3 (1.1-4.8); LYMPHOCYTES % (AUTO) 3.7 % (21-51); MEAN CORPUSCULAR HEMOGLOBIN 30.3 PG (27.0-31.0); MEAN CORPUSCULAR HGB CONC 33.9 g/dL (33.0-36.5); MEAN CORPUSCULAR VOLUME 89.5 FL (78-98); MEAN PLATELET VOLUME 6.8 FL (7.4-10.4); MONOCYTES # (AUTO) 0.3 X10'3 (0-0.9); MONOCYTES % (AUTO) 2.2 % (2-12); NEUTROPHILS # (AUTO) 11.4 X10'3 (1.8-7.7); PLATELET COUNT 202 X10'3 (140-440); RED CELL DISTRIBUTION WIDTH 14.8 % (11.5-14.5); WHITE BLOOD COUNT 12.1 X10'3 (4.5-11.0)
--- NOTE | 2019-06-06 06:30 | NUR ---
Problems reprioritized. Patient report given, questions answered & plan of care reviewed with NANCY FERNANDEZ.
[2019-06-06 06:52] LABS: ALANINE AMINOTRANSFERASE 24 U/L (12-78); ALKALINE PHOSPHATASE 71 IU/L (46-116); ANION GAP 6 (8-16); ASPARTATE AMINO TRANSFERASE 17 U/L (10-37); BILIRUBIN,TOTAL 0.2 MG/DL (0.1-1.0); BLOOD UREA NITROGEN 17 MG/DL (7-18); BUN/CREATININE RATIO 21.5 (5.4-32.0); CALCIUM 8.4 MG/DL (8.5-10.1); CHLORIDE 110 MMOL/L (99-107); CREATININE 0.79 MG/DL (0.60-1.10); GLUCOSE 152 MG/DL (70-104); POTASSIUM 4.3 MMOL/L (3.5-5.1); SODIUM 145 MMOL/L (135-145); TOTAL CARBON DIOXIDE 28.8 MMOL/L (24-32); TOTAL PROTEIN 6.1 G/DL (6.4-8.2); eGFR > 90 ML/MIN
--- NOTE | 2019-06-06 06:57 | NUR ---
Patient in room MALISSA 354. I have received report from Nay FERNANDEZ and had the opportunity to ask questions and assume patient care.
[2019-06-06 07:00] VITALS: BP 134/77
[2019-06-06] MEDS: K and/or MAG REPLACEMENT MC SCH (08:00)
[2019-06-06] MEDS: guaiFENesin/DM 10ml UD oral syrup PO PRN (09:23)
[2019-06-06] MEDS: isosorbide mononitrate 30mg tab.SR.24H PO SCH (09:24)
[2019-06-06] MEDS: atorvastatin 20mg tablet PO SCH (09:24)
[2019-06-06] MEDS: lactobacillus rhamnosus 10,000 MMU CELLS/CAPSULE PO SCH (09:24)
[2019-06-06] MEDS: carvedilol 6.25mg tablet PO SCH (09:24)
[2019-06-06] MEDS: tamsulosin 0.4mg capsule PO SCH (09:25)
[2019-06-06] MEDS: dabigatran 150mg capsule PO SCH (09:25)
[2019-06-06] MEDS: clopidogrel 75mg tablet PO SCH (09:25)
[2019-06-06] MEDS: normal saline 1000ml 1,000 ML IV SCH (10:37)
[2019-06-06 11:00] VITALS: BP 133/79
[2019-06-06] MEDS ORDERED: levoFLOXACIN 750MG TABLET PO SCH (11:00)
--- NOTE | 2019-06-06 13:43 | NUR ---
O2 discontinued per Dr. Arreola's instruction. O2 sat on room air was 89%. When patient took a deep breath as per Dr. Arreola's instruction, his O2 sat was 92%. Patient stated he already have home oxygen, Dr. Arreola instructed him to use it at home as needed and to use the incentive spirometer every 1 hour while awake at home.
[2019-06-06] MEDS ORDERED: ROBDML PO (13:47)
[2019-06-06] MEDS ORDERED: BUDE10.22 INH (13:47)
[2019-06-06] MEDS ORDERED: LEVO750T46 PO (13:47)
[2019-06-06] MEDS ORDERED: PRED10TA23 PO (13:47)
[2019-06-06] MEDS ORDERED: LACT1CAP26 PO (13:47)
--- NOTE | 2019-06-06 14:03 | NUR ---
Patient stated that his will be the one to give him a ride home and that his brought the oxygen and it is in the car to be used during transportation
--- NOTE | 2019-06-06 14:50 | NUR ---
Discharge instructions given to patient, patient verbalized understanding of all instructions made. Peripheral IV catheter removed, tip intact. New prescription called in to [facility] in [facility] c/o Charge nurse Yin. Encouraged patient to use the incentive spirometer at home. Patient was discharged home with his , patient had oxygen in the car to use on the way home. Addendum: 06/06/19 at 1506 by Kirsten Boyd RN Instructed patient to ensure he has all his belongings with him before leaving the hospital
== END 2019-06-06 15:02 | disposition home or self-care (01) | DRG 177 ==
LOC: ER 12:43 → SUR 3N 19:27
PROVIDERS: ADMIT Family Medicine; ATTEND Family Medicine
PROC: B32T1ZZ Computerized Tomography (CT Scan) of Left Pulmonary Artery using Low Osmolar Contrast (ICD-10-PCS; principal; 2019-06-04)
PROC: B32S1ZZ Computerized Tomography (CT Scan) of Right Pulmonary Artery using Low Osmolar Contrast (ICD-10-PCS; 2019-06-04)
DX: J69.0 Pneumonitis due to inhalation of food and vomit (principal); J96.01 Acute respiratory failure with hypoxia; J44.1 Chronic obstructive pulmonary disease with (acute) exacerbation; J44.0 Chronic obstructive pulmonary disease with (acute) lower respiratory infection; I48.91 Unspecified atrial fibrillation; E78.00 Pure hypercholesterolemia, unspecified; E78.5 Hyperlipidemia, unspecified; I10 Essential (primary) hypertension; N40.0 Benign prostatic hyperplasia without lower urinary tract symptoms; J20.9 Acute bronchitis, unspecified; G89.29 Other chronic pain; M54.9 Dorsalgia, unspecified; I25.10 Atherosclerotic heart disease of native coronary artery without angina pectoris; Z95.5 Presence of coronary angioplasty implant and graft; I25.2 Old myocardial infarction; Z79.02 Long term (current) use of antithrombotics/antiplatelets; Z79.899 Other long term (current) drug therapy; Z87.891 Personal history of nicotine dependence; Z90.49 Acquired absence of other specified parts of digestive tract; Z99.81 Dependence on supplemental oxygen; Z82.49 Family history of ischemic heart disease and other diseases of the circulatory system
CPT/HCPCS: 36415; 71045; 71275; 80053; 80061; 81003; 83036; 83605; 83735; 83880; 84100; 84145; 84484; 85025; 85610; 85730; 87040; 87070; 87081; 93005; 94640; 94760; 96374; 96375; 97110; 97116; 97161; 97530; 99285; G0378; J1956; J2930; J7030; Q9967

== ENCOUNTER 2019-07-25 23:29 | Inpatient (IN) | payer OTHER ==
[~2019-07-25] VITALS: Ht 182.9 cm; Wt 118.0 kg
[~2019-07-25 23:29] MED LIST changes: -APIX5TAB3 PO; -ASPI-611 PO; -ATOR40TA PO; +ATOR40TA71 PO; -BUDE10.2 INH; +BUDE10.22 INH; -CARV-50 PO; +CARV6.252 PO; +CLOP75TA15 PO; +DABI150C PO; +ISOS30TA6 PO; +LACT1CAP26 PO; +LEVO750T46 PO; +NITR0.4T48 SL; -NITR0.4T51 SL; +ROBDML PO; -TICA90TA PO; +TIOT4MIS3 IH
[2019-07-25] MEDS ORDERED: ipratropium 0.5 MG/2.5ML nebule IH ONE (23:55)
[2019-07-25] MEDS ORDERED: albuterol 2.5 MG/3 ML nebule CONTNEB PRN (23:55)
[2019-07-26] VITALS (7 sets, daily range): BP systolic 103–155; BP diastolic 48–91
[2019-07-26 00:07] LABS: BASOPHILS % (AUTO) 0.2 % (0-1); EOSINOPHILS # (AUTO) 0.1 X10'3 (0-0.9); EOSINOPHILS % (AUTO) 1.2 % (0-6); HEMATOCRIT 42.6 % (42.0-52.0); HEMOGLOBIN 14.3 g/dl (14.0-17.9); LYMPHOCYTES # (AUTO) 0.5 X10'3 (1.1-4.8); LYMPHOCYTES % (AUTO) 4.2 % (21-51); MEAN CORPUSCULAR HEMOGLOBIN 30.4 PG (27.0-31.0); MEAN CORPUSCULAR HGB CONC 33.5 g/dL (33.0-36.5); MEAN CORPUSCULAR VOLUME 90.8 FL (78-98); MONOCYTES # (AUTO) 0.1 X10'3 (0-0.9); MONOCYTES % (AUTO) 0.9 % (2-12); NEUTROPHILS # (AUTO) 11.3 X10'3 (1.8-7.7); NEUTROPHILS % (AUTO) 93.5 % (42-75); PLATELET COUNT 171 X10'3 (140-440); RED BLOOD COUNT 4.69 X10'6 (4.70-6.10); RED CELL DISTRIBUTION WIDTH 15.6 % (11.5-14.5)
[2019-07-26] MEDS ORDERED: nitroGLYCERIN 0.4mg/hour patch TD ONE (00:10)
[2019-07-26 00:22] LABS: ALANINE AMINOTRANSFERASE 30 U/L (12-78); ALBUMIN 3.7 G/DL (3.4-5.0); ALKALINE PHOSPHATASE 73 IU/L (46-116); ANION GAP 4 (8-16); ASPARTATE AMINO TRANSFERASE 23 U/L (10-37); BILIRUBIN,TOTAL 0.4 MG/DL (0.1-1.0); BLOOD UREA NITROGEN 24 MG/DL (7-18); BUN/CREATININE RATIO 27.3 (5.4-32.0); CALCIUM 8.8 MG/DL (8.5-10.1); CHLORIDE 105 MMOL/L (99-107); CREATININE 0.88 MG/DL (0.60-1.10); GLUCOSE 157 MG/DL (70-104); POTASSIUM 4.9 MMOL/L (3.5-5.1); SODIUM 140 MMOL/L (135-145); TOTAL CARBON DIOXIDE 30.6 MMOL/L (24-32); TOTAL PROTEIN 7.5 G/DL (6.4-8.2); eGFR 87 ML/MIN
[2019-07-26 00:24] LABS: PARTIAL THROMBOPLASTIN TIME 33 SECONDS (22-32)
[2019-07-26 00:29] LABS: TROPONIN I < 0.04 NG/ML (0.0-0.05)
[2019-07-26 00:41] LABS: ABG BASE EXCESS -0.5 mmol/L (-2.0-3.0); ABG HCO3 27.7 mmol/L (22.0-26.0); ABG PCO2 (T) 59.5 mmHg (35.0-45.0); ABG PH (T) 7.284 (7.350-7.450); ABG PO2 (T) 63.2 mmHg (83-108); ALLEN'S TEST Positive; FCOHb 1.1 % (0.5-1.5); FLOW 4 L/min; FMetHb 0.1 % (0.3-1.12); FO2Hb 89.9 % (94-100); PATIENT TEMPERATURE 36.6; TOTAL HEMOGLOBIN 15.2 G/dl (14.0-17.9)
[2019-07-26] MEDS ORDERED: CefTRIAXone 2gm/D5W 50ml 50 ML IV ONE (00:45)
[2019-07-26 02:21] LABS: ABG HCO3 28.7 mmol/L (22.0-26.0); ABG OXYGEN SATURATION 95.6 % (95-98); ABG PCO2 (T) 57.5 mmHg (35.0-45.0); ABG PH (T) 7.314 (7.350-7.450); ALLEN'S TEST Positive; FMetHb 0.3 % (0.3-1.12); FO2Hb 94.4 % (94-100); MINUTE VOLUME 9 L/min; PATIENT TEMPERATURE 36.6; RESPIRATORY RATE 10 b/min; RESPIRATORY RATE (OBSERVED) 13 b/min; TIDAL VOLUME 700 mL; TOTAL HEMOGLOBIN 14.4 G/dl (14.0-17.9)
--- NOTE | 2019-07-26 02:33 | NUR ---
DISCUSSED PT STATUS WITH [facility] AND ORDERED NITRO PATCH. PT BP WNL. PER [facility] HOLD MED.
[2019-07-26] MEDS ORDERED: ondansetron/PF 4mg/2ml inj IV PRN (02:50)
[2019-07-26] MEDS ORDERED: acetaminophen 325mg tablet PO PRN ×2 (02:50)
[2019-07-26] MEDS ORDERED: albuterol 2.5 MG/3 ML nebule NEB PRN (02:50)
[2019-07-26] MEDS ORDERED: mag hydrox/Alum hydrox/simeth 30ml oral suspension PO PRN (02:50)
[2019-07-26] MEDS ORDERED: HYDROcodone/acetaminophen 5mg/325mg tablet PO PRN (02:50)
[2019-07-26] MEDS ORDERED: HYDROcodone/acetaminophen 10/325mg tab PO PRN (02:50)
[2019-07-26] MEDS ORDERED: magnesium hydroxide 30ml (MOM) UD suspension PO PRN (02:50)
[2019-07-26] MEDS: ipratropium/albuterol 3ml nebule NEB SCH ×6 (03:21→23:04)
--- NOTE | 2019-07-26 04:30 | NUR ---
Patient in room PCU 3018. I have received report from Regina FERNANDEZ from ER and had the opportunity to ask questions and assume patient care. Patient came to unit with all belongings.
--- NOTE | 2019-07-26 06:22 | NUR ---
Patient in room PCU 3018A. I have received report from Laura FERNANDEZ and had the opportunity to ask questions and assume patient care.
--- NOTE | 2019-07-26 07:06 | NUR ---
Problems reprioritized. Patient report given, questions answered & plan of care reviewed with Tatiana FERNANDEZ.
[2019-07-26] MEDS: CefTRIAXone/D5W-Rocephin 1gm 50 ML IV SCH (07:42)
[2019-07-26] MEDS: methylPREDNISolone sod succ 125mg/2ml vial IV SCH ×2 (07:42→20:18)
[2019-07-26] MEDS ORDERED: nitroGLYCERIN 0.4mg SUBLingual tab SL PRN (10:05)
[2019-07-26] MEDS ORDERED: magnesium Cl slow-release 64mg tablet PO PRN (10:40)
[2019-07-26] MEDS ORDERED: potassium Cl 20 mEq SR tablet PO PRN ×2 (10:40)
[2019-07-26] MEDS ORDERED: magnesium 4gm in 100ml NS 100 ML IV PRN (10:40)
[2019-07-26] MEDS ORDERED: potassium CL 10mEq/100ml bag 100 ML IV PRN (10:40)
[2019-07-26] MEDS: atorvastatin 20mg tablet PO SCH (10:42)
[2019-07-26] MEDS: azithromycin 250mg tablet PO SCH (10:56)
[2019-07-26] MEDS ORDERED: FLU VACC QS2019-20 36MOS UP/PF 60 MCG/0.5 ML SYRINGE IMVAC ONE (11:40)
--- NOTE | 2019-07-26 12:59 | NUR ---
Paged hospitalist, Dr. Arreola. Patient's heart rate increased to the 130's. Patient was up, moving around and using urinal. Sitting up in bed, heart rate is 120's. Patient has no complaints. Will continue to monitor. PAGER ID: [phone] MESSAGE: Rachelle ruiz [phone]. RE Lydia Sifuentes [id number]. FYI patient's heart rate up to 130's, while moving around. Resting rate in the 120's currently. Asymptomatic. Will continue to monitor. Thanks!
--- NOTE | 2019-07-26 18:00 | NUR ---
Patient in room PCU 3018. I have received report from Tatiana FERNANDEZ and Rachelle FERNANDEZ and had the opportunity to ask questions and assume patient care.
--- NOTE | 2019-07-26 18:05 | NUR ---
Patient reported to the nurses aide that he was experiencing chest pain. Clarified with patient that he had a brief episode of chest pain, 3/10, dull in nature, nonradiating. He states that the pain lasted about 2 minutes and resolved. He reports that he has this chest pain 1-2 times per day, everyday for the past 2-3 years. No chest pain at present. VS stable. Will continue to monitor.
--- NOTE | 2019-07-26 18:12 | NUR ---
Problems reprioritized. Patient report given, questions answered & plan of care reviewed with Laura FERNANDEZ.
--- NOTE | 2019-07-26 18:15 | NUR ---
New hire documentation: I have reviewed and agree with all interventions, assessments performed and documented by Rachelle FERNANDEZ.
[2019-07-26] MEDS: carvedilol 6.25mg tablet PO SCH (20:18)
[2019-07-26] MEDS: lactobacillus rhamnosus 10,000 MMU CELLS/CAPSULE PO SCH (20:18)
[2019-07-26] MEDS: dabigatran 150mg capsule PO SCH (20:18)
[2019-07-27 03:00] VITALS: BP 108/50
[2019-07-27] MEDS: ipratropium/albuterol 3ml nebule NEB SCH ×6 (03:10→23:05)
[2019-07-27 05:11] LABS: BASOPHILS % (AUTO) 0 % (0-1); EOSINOPHILS % (AUTO) 0 % (0-6); HEMOGLOBIN 13.4 g/dl (14.0-17.9); LYMPHOCYTES # (AUTO) 0.5 X10'3 (1.1-4.8); LYMPHOCYTES % (AUTO) 4.1 % (21-51); MEAN CORPUSCULAR HEMOGLOBIN 30.4 PG (27.0-31.0); MEAN CORPUSCULAR HGB CONC 33.5 g/dL (33.0-36.5); MEAN CORPUSCULAR VOLUME 90.9 FL (78-98); MEAN PLATELET VOLUME 7.1 FL (7.4-10.4); MONOCYTES # (AUTO) 0.4 X10'3 (0-0.9); MONOCYTES % (AUTO) 3.4 % (2-12); NEUTROPHILS # (AUTO) 10.7 X10'3 (1.8-7.7); NEUTROPHILS % (AUTO) 92.5 % (42-75); PLATELET COUNT 153 X10'3 (140-440); RED CELL DISTRIBUTION WIDTH 15.6 % (11.5-14.5); WHITE BLOOD COUNT 11.6 X10'3 (4.5-11.0)
[2019-07-27 05:27] LABS: ALBUMIN 3.3 G/DL (3.4-5.0); ANION GAP 5 (8-16); BLOOD UREA NITROGEN 17 MG/DL (7-18); BUN/CREATININE RATIO 23.9 (5.4-32.0); CALCIUM 9.3 MG/DL (8.5-10.1); CHLORIDE 106 MMOL/L (99-107); CREATININE 0.71 MG/DL (0.60-1.10); GLUCOSE 138 MG/DL (70-104); MAGNESIUM 2.2 MG/DL (1.5-2.4); PHOSPHORUS 3.7 MG/DL (2.3-4.5); POTASSIUM 4.4 MMOL/L (3.5-5.1); SODIUM 143 MMOL/L (135-145); TOTAL CARBON DIOXIDE 32.3 MMOL/L (24-32); eGFR > 90 ML/MIN
--- NOTE | 2019-07-27 06:15 | NUR ---
Patient in room PCU 3018A. I have received report from Laura FERNANDEZ and had the opportunity to ask questions and assume patient care.
--- NOTE | 2019-07-27 06:17 | NUR ---
Problems reprioritized. Patient report given, questions answered & plan of care reviewed with Tatiana FERNANDEZ.
[2019-07-27 06:30] VITALS: BP 135/77
[2019-07-27] MEDS: CefTRIAXone/D5W-Rocephin 1gm 50 ML IV SCH (07:08)
[2019-07-27] MEDS: azithromycin 250mg tablet PO SCH (07:09)
[2019-07-27] MEDS: dabigatran 150mg capsule PO SCH ×2 (07:09→19:10)
[2019-07-27] MEDS: tamsulosin 0.4mg capsule PO SCH (07:09)
[2019-07-27] MEDS: lactobacillus rhamnosus 10,000 MMU CELLS/CAPSULE PO SCH ×2 (07:09→19:10)
[2019-07-27] MEDS: atorvastatin 20mg tablet PO SCH (07:09)
[2019-07-27] MEDS: methylPREDNISolone sod succ 125mg/2ml vial IV SCH ×2 (07:09→19:10)
[2019-07-27] MEDS: isosorbide mononitrate 30mg tab.SR.24H PO SCH (07:10)
[2019-07-27] MEDS: carvedilol 6.25mg tablet PO SCH ×2 (07:10→19:10)
[2019-07-27] MEDS: clopidogrel 75mg tablet PO SCH (07:10)
--- NOTE | 2019-07-27 08:44 | NUR ---
Patient says he was experiencing chest pain, rated 3/10 that felt pinch like, but went away. Says this is not new for him, he has been experiencing it for years on and off. Paged Dr Arreola to make aware PAGER ID: [phone] MESSAGE: Tatiana ruiz [phone]. RE Lydia Sifuentes [id number]. BALWINDER that patient was experiencing chest pain rated 3/10. Non-radiating, describes it as "pinch-like" but this is something he says he has experienced on and off for years. Will continue to monitor closely
[2019-07-27 11:00] VITALS: BP 122/58
[2019-07-27 15:00] VITALS: BP 134/69
--- NOTE | 2019-07-27 15:17 | NUR ---
Patient in room U 3018. I have received report from REBECCA Simpson and had the opportunity to ask questions and assume patient care. Patient awake in bed with no complaints at this time.
--- NOTE | 2019-07-27 15:28 | NUR ---
Problems reprioritized. Patient report given, questions answered & plan of care reviewed with Estephania FERNANDEZ.
[2019-07-27 18:00] VITALS: BP 140/69
--- NOTE | 2019-07-27 18:03 | NUR ---
Problems reprioritized. Patient report given, questions answered & plan of care reviewed with REBECCA Grayson.
--- NOTE | 2019-07-27 18:06 | NUR ---
Orientee documentation: I have reviewed and agree with all interventions, assessments performed and documented by REBECCA Morrison. Orientee Medication Administration: For this medication-pass time frame, all medication were reviewed, dispensed, administered and documented per hospital policy by REBECCA Morrison.
--- NOTE | 2019-07-27 18:07 | NUR ---
Problems reprioritized. Patient report given, questions answered & plan of care reviewed with Laura FERNANDEZ. Patient stable at transfer of care.
--- NOTE | 2019-07-27 18:32 | NUR ---
Patient in room PCU 3018. I have received report from Estephania FERNANDEZ and had the opportunity to ask questions and assume patient care.
--- NOTE | 2019-07-27 18:32 | NUR ---
Cough Medicine PAGER ID: [phone] MESSAGE: [phone] Yosef Sifuentes: Patient here for COPD, coughing persistently and getting tired. Would you like to order something? Laura FERNANDEZ [phone]
[2019-07-27] MEDS ORDERED: guaiFENesin/DM 10ml UD oral syrup PO ONE (19:20)
[2019-07-27] MEDS ORDERED: guaiFENesin/DM 10ml UD oral syrup PO PRN (19:20)
[2019-07-27 22:30] VITALS: BP 125/69
--- NOTE | 2019-07-27 22:57 | NUR ---
Patient in room PCU 3018. I have received report from Ananya FERNANDEZ and had the opportunity to ask questions and assume patient care.
--- NOTE | 2019-07-27 23:10 | NUR ---
Problems reprioritized. Patient report given, questions answered & plan of care reviewed with Maurilio FERNANDEZ.
[2019-07-28 02:00] VITALS: BP 134/74
[2019-07-28] MEDS: ipratropium/albuterol 3ml nebule NEB SCH ×2 (03:22→07:41)
[2019-07-28 05:12] LABS: BASOPHILS % (AUTO) 0.2 % (0-1); EOSINOPHILS % (AUTO) 0 % (0-6); HEMATOCRIT 41.7 % (42.0-52.0); HEMOGLOBIN 13.9 g/dl (14.0-17.9); LYMPHOCYTES # (AUTO) 0.5 X10'3 (1.1-4.8); LYMPHOCYTES % (AUTO) 5.1 % (21-51); MEAN CORPUSCULAR HEMOGLOBIN 30.3 PG (27.0-31.0); MEAN CORPUSCULAR HGB CONC 33.3 g/dL (33.0-36.5); MEAN CORPUSCULAR VOLUME 90.8 FL (78-98); MEAN PLATELET VOLUME 7.1 FL (7.4-10.4); MONOCYTES # (AUTO) 0.4 X10'3 (0-0.9); NEUTROPHILS # (AUTO) 9.1 X10'3 (1.8-7.7); NEUTROPHILS % (AUTO) 90.7 % (42-75); PLATELET COUNT 172 X10'3 (140-440); RED BLOOD COUNT 4.59 X10'6 (4.70-6.10); RED CELL DISTRIBUTION WIDTH 15.5 % (11.5-14.5); WHITE BLOOD COUNT 10.1 X10'3 (4.5-11.0)
--- NOTE | 2019-07-28 05:38 | NUR ---
Orientee documentation: I have reviewed and agree with all interventions, assessments performed and documented by Alonso FERNANDEZ.
[2019-07-28 05:41] LABS: ALBUMIN 3.3 G/DL (3.4-5.0); ANION GAP 5 (8-16); BLOOD UREA NITROGEN 22 MG/DL (7-18); BUN/CREATININE RATIO 24.4 (5.4-32.0); CALCIUM 9.1 MG/DL (8.5-10.1); CHLORIDE 104 MMOL/L (99-107); GLUCOSE 137 MG/DL (70-104); MAGNESIUM 2.2 MG/DL (1.5-2.4); PHOSPHORUS 3.9 MG/DL (2.3-4.5); POTASSIUM 4.3 MMOL/L (3.5-5.1); SODIUM 141 MMOL/L (135-145); TOTAL CARBON DIOXIDE 31.7 MMOL/L (24-32); eGFR 85 ML/MIN
--- NOTE | 2019-07-28 06:08 | NUR ---
Problems reprioritized. Patient report given, questions answered & plan of care reviewed with Estephania FERNANDEZ and Tamiko FERNANDEZ.
--- NOTE | 2019-07-28 06:16 | NUR ---
Patient in room U 3018. I have received report from Maurilio FERNANDEZ and had the opportunity to ask questions and assume patient care. Patient asleep in bed and resting comfortably.
--- NOTE | 2019-07-28 06:26 | NUR ---
Patient in room PCU 3018. I have received report from REBECCA Thorpe and had the opportunity to ask questions and assume patient care. Patient asleep and in no acute distress.
[2019-07-28 07:00] VITALS: BP 147/66
[2019-07-28] MEDS: methylPREDNISolone sod succ 125mg/2ml vial IV SCH (08:06)
[2019-07-28] MEDS: CefTRIAXone/D5W-Rocephin 1gm 50 ML IV SCH (08:06)
[2019-07-28] MEDS: lactobacillus rhamnosus 10,000 MMU CELLS/CAPSULE PO SCH (08:07)
[2019-07-28] MEDS: clopidogrel 75mg tablet PO SCH (08:07)
[2019-07-28] MEDS: isosorbide mononitrate 30mg tab.SR.24H PO SCH (08:07)
[2019-07-28] MEDS: atorvastatin 20mg tablet PO SCH (08:07)
[2019-07-28] MEDS: tamsulosin 0.4mg capsule PO SCH (08:07)
[2019-07-28] MEDS: azithromycin 250mg tablet PO SCH (08:08)
[2019-07-28] MEDS: dabigatran 150mg capsule PO SCH (08:08)
[2019-07-28] MEDS: carvedilol 6.25mg tablet PO SCH (08:08)
[2019-07-28] MEDS ORDERED: PRED10TA23 PO (09:38)
[2019-07-28] MEDS ORDERED: CEFD300C3 PO (09:38)
--- NOTE | 2019-07-28 11:31 | NUR ---
Patient is stable for discharge per MD orders. All discharge instructions reviewed with patient and all questions answered. [facility] Patient will make his own follow up appointment. PIV discontinued. packing supervisor discontinued. Belongings collected and sent with patient. Patient is being picked up by private vehicle and was wheeled to the lobby.
== END 2019-07-28 11:20 | disposition home or self-care (01) | DRG 177 ==
LOC: ER 23:30 → ED HOLD 07-26 02:52 → PCU 3S 07-26 04:16
PROVIDERS: ADMIT Hospitalist; ATTEND Family Medicine
PROC: 5A09357 Assistance with Respiratory Ventilation, Less than 24 Consecutive Hours, Continuous Positive Airway Pressure (ICD-10-PCS; principal; 2019-07-26)
PROC: 3E02340 Introduction of Influenza Vaccine into Muscle, Percutaneous Approach (ICD-10-PCS; 2019-07-26)
PROC: 5A09357 Assistance with Respiratory Ventilation, Less than 24 Consecutive Hours, Continuous Positive Airway Pressure (ICD-10-PCS; 2019-07-27)
DX: J69.0 Pneumonitis due to inhalation of food and vomit (principal); J96.01 Acute respiratory failure with hypoxia; J96.02 Acute respiratory failure with hypercapnia; J44.1 Chronic obstructive pulmonary disease with (acute) exacerbation; E87.2 Acidosis; J44.0 Chronic obstructive pulmonary disease with (acute) lower respiratory infection; E78.00 Pure hypercholesterolemia, unspecified; E78.5 Hyperlipidemia, unspecified; I10 Essential (primary) hypertension; G89.29 Other chronic pain; K76.9 Liver disease, unspecified; M54.9 Dorsalgia, unspecified; I25.10 Atherosclerotic heart disease of native coronary artery without angina pectoris; I48.91 Unspecified atrial fibrillation; J20.9 Acute bronchitis, unspecified; N40.0 Benign prostatic hyperplasia without lower urinary tract symptoms; Z87.01 Personal history of pneumonia (recurrent); Z95.5 Presence of coronary angioplasty implant and graft; Z99.81 Dependence on supplemental oxygen; I25.2 Old myocardial infarction; Z23 Encounter for immunization; Z90.49 Acquired absence of other specified parts of digestive tract
CPT/HCPCS: 36415; 36600; 71045; 80048; 80053; 82803; 83605; 83735; 83880; 84100; 84145; 84484; 85018; 85025; 85610; 85730; 87040; 87081; 93005; 94640; 94660; 94760; 97110; 97161; 97530; 99285; G0378; J0696; J2930; Q2037

== ENCOUNTER 2020-01-06 12:44 | Emergency (ER) | payer OTHER ==
[~2020-01-06] VITALS: Ht 182.9 cm; Wt 113.6 kg
[~2020-01-06 12:44] MED LIST changes: -LEVO750T46 PO
[2020-01-06 13:25] LABS: BASOPHILS % (AUTO) 0.4 % (0-1); EOSINOPHILS # (AUTO) 0.4 X10'3 (0-0.9); EOSINOPHILS % (AUTO) 6.6 % (0-6); HEMATOCRIT 43.1 % (42.0-52.0); HEMOGLOBIN 14.4 g/dl (14.0-17.9); LYMPHOCYTES # (AUTO) 0.8 X10'3 (1.1-4.8); LYMPHOCYTES % (AUTO) 12.3 % (21-51); MEAN CORPUSCULAR HGB CONC 33.3 g/dL (33.0-36.5); MEAN CORPUSCULAR VOLUME 90.2 FL (78-98); MEAN PLATELET VOLUME 7.2 FL (7.4-10.4); MONOCYTES # (AUTO) 0.7 X10'3 (0-0.9); MONOCYTES % (AUTO) 10.2 % (2-12); NEUTROPHILS # (AUTO) 4.7 X10'3 (1.8-7.7); NEUTROPHILS % (AUTO) 70.5 % (42-75); PLATELET COUNT 157 X10'3 (140-440); RED BLOOD COUNT 4.78 X10'6 (4.70-6.10); RED CELL DISTRIBUTION WIDTH 14.7 % (11.5-14.5); WHITE BLOOD COUNT 6.7 X10'3 (4.5-11.0)
[2020-01-06 13:43] LABS: ALANINE AMINOTRANSFERASE 22 U/L (12-78); ALBUMIN 3.8 G/DL (3.4-5.0); ALBUMIN/GLOBULIN RATIO 1.1 (1.1-1.5); ALKALINE PHOSPHATASE 88 IU/L (46-116); ANION GAP 8 (8-16); ASPARTATE AMINO TRANSFERASE 19 U/L (10-37); BILIRUBIN,TOTAL 0.6 MG/DL (0.1-1.0); BLOOD UREA NITROGEN 21 MG/DL (7-18); BUN/CREATININE RATIO 24.1 (5.4-32.0); CALCIUM 9.4 MG/DL (8.5-10.1); CHLORIDE 104 MMOL/L (99-107); CREATININE 0.87 MG/DL (0.60-1.10); GLUCOSE 106 MG/DL (70-104); POTASSIUM 4.2 MMOL/L (3.5-5.1); SODIUM 142 MMOL/L (135-145); TOTAL CARBON DIOXIDE 30.3 MMOL/L (24-32); TOTAL PROTEIN 7.3 G/DL (6.4-8.2); eGFR 89 ML/MIN
[2020-01-06] MEDS ORDERED: ipratropium/albuterol 3ml nebule NEB ONE (14:35)
[2020-01-06] MEDS ORDERED: methylPREDNISolone sod succ 125mg/2ml vial IV ONE (14:35)
--- NOTE | 2020-01-06 15:03 | NUR ---
RT at bedside.
[2020-01-06] MEDS ORDERED: DOXY100C76 PO (15:29)
[2020-01-06] MEDS ORDERED: AZIT250T2 PO (15:29)
[2020-01-06] MEDS ORDERED: PRED20TA PO (15:29)
[2020-01-06 16:25] VITALS: BP 142/74
== END 2020-01-06 15:57 | disposition home or self-care (01) ==
LOC: ER 12:44
DX: J44.1 Chronic obstructive pulmonary disease with (acute) exacerbation (principal); J20.9 Acute bronchitis, unspecified; I25.10 Atherosclerotic heart disease of native coronary artery without angina pectoris; E78.00 Pure hypercholesterolemia, unspecified; I10 Essential (primary) hypertension; I25.2 Old myocardial infarction; J44.9 Chronic obstructive pulmonary disease, unspecified; G89.29 Other chronic pain; Z98.61 Coronary angioplasty status; Z98.890 Other specified postprocedural states; Z79.2 Long term (current) use of antibiotics; Z79.899 Other long term (current) drug therapy
CPT/HCPCS: 36415; 71045; 80053; 83605; 83880; 84484; 85025; 87040; 93005; 94640; 96374; 99285; J2930; 94760

== ENCOUNTER 2020-01-22 10:02 | Emergency (ER) | payer OTHER ==
[~2020-01-22] VITALS: Ht 182.9 cm; Wt 118.2 kg
[2020-01-22 10:32] LABS: BASOPHILS % (AUTO) 0.4 % (0-1); EOSINOPHILS # (AUTO) 0.3 X10'3 (0-0.9); EOSINOPHILS % (AUTO) 4.5 % (0-6); HEMATOCRIT 41.3 % (42.0-52.0); HEMOGLOBIN 13.7 g/dl (14.0-17.9); LYMPHOCYTES # (AUTO) 0.9 X10'3 (1.1-4.8); LYMPHOCYTES % (AUTO) 12.2 % (21-51); MEAN CORPUSCULAR HEMOGLOBIN 30.1 PG (27.0-31.0); MEAN CORPUSCULAR HGB CONC 33.1 g/dL (33.0-36.5); MEAN CORPUSCULAR VOLUME 91.2 FL (78-98); MEAN PLATELET VOLUME 6.9 FL (7.4-10.4); MONOCYTES # (AUTO) 0.7 X10'3 (0-0.9); MONOCYTES % (AUTO) 8.9 % (2-12); NEUTROPHILS # (AUTO) 5.7 X10'3 (1.8-7.7); PLATELET COUNT 160 X10'3 (140-440); RED BLOOD COUNT 4.53 X10'6 (4.70-6.10); RED CELL DISTRIBUTION WIDTH 14.3 % (11.5-14.5); WHITE BLOOD COUNT 7.6 X10'3 (4.5-11.0)
[2020-01-22] MEDS ORDERED: methylPREDNISolone sod succ 125mg/2ml vial IV ONE (10:35)
[2020-01-22 10:39] LABS: ALANINE AMINOTRANSFERASE 20 U/L (12-78); ALBUMIN 3.6 G/DL (3.4-5.0); ALBUMIN/GLOBULIN RATIO 1.1 (1.1-1.5); ALKALINE PHOSPHATASE 87 IU/L (46-116); ANION GAP 4 (8-16); ASPARTATE AMINO TRANSFERASE 18 U/L (10-37); BILIRUBIN,TOTAL 0.6 MG/DL (0.1-1.0); BLOOD UREA NITROGEN 16 MG/DL (7-18); BUN/CREATININE RATIO 18.6 (5.4-32.0); CALCIUM 9.2 MG/DL (8.5-10.1); CHLORIDE 106 MMOL/L (99-107); CREATININE 0.86 MG/DL (0.60-1.10); GLUCOSE 113 MG/DL (70-104); POTASSIUM 4.1 MMOL/L (3.5-5.1); SODIUM 143 MMOL/L (135-145); TOTAL CARBON DIOXIDE 32.6 MMOL/L (24-32); TOTAL PROTEIN 6.8 G/DL (6.4-8.2); eGFR 90 ML/MIN
[2020-01-22] MEDS: ipratropium/albuterol 3ml nebule NEB SCH ×2 (11:04→11:39)
[2020-01-22] MEDS ORDERED: ipratropium/albuterol 3ml nebule NEB ONE (11:20)
[2020-01-22] MEDS ORDERED: DOXY100C76 PO (11:28)
[2020-01-22] MEDS ORDERED: PRED10TA23 PO (11:28)
[2020-01-22 12:07] VITALS: BP 139/91
== END 2020-01-22 11:47 | disposition home or self-care (01) ==
LOC: ER 10:02
DX: J45.901 Unspecified asthma with (acute) exacerbation (principal); I25.10 Atherosclerotic heart disease of native coronary artery without angina pectoris; E78.00 Pure hypercholesterolemia, unspecified; I10 Essential (primary) hypertension; I25.2 Old myocardial infarction; G89.29 Other chronic pain; Z86.69 Personal history of other diseases of the nervous system and sense organs; Z98.61 Coronary angioplasty status; Z98.890 Other specified postprocedural states; Z79.899 Other long term (current) drug therapy
CPT/HCPCS: 36415; 71045; 80053; 83880; 84484; 85025; 93005; 94640; 96374; 99285; J2930; 94760

== ENCOUNTER 2020-02-29 10:43 | Emergency (ER) | payer OTHER ==
[~2020-02-29] VITALS: Ht 182.9 cm; Wt 122.7 kg
[2020-02-29 11:41] LABS: BASOPHILS % (AUTO) 0.7 % (0-1); EOSINOPHILS # (AUTO) 0.5 X10'3 (0-0.9); EOSINOPHILS % (AUTO) 8.3 % (0-6); HEMATOCRIT 41.3 % (42.0-52.0); HEMOGLOBIN 13.6 g/dl (14.0-17.9); LYMPHOCYTES # (AUTO) 0.9 X10'3 (1.1-4.8); LYMPHOCYTES % (AUTO) 15.2 % (21-51); MEAN CORPUSCULAR HEMOGLOBIN 29.8 PG (27.0-31.0); MEAN CORPUSCULAR HGB CONC 32.9 g/dL (33.0-36.5); MEAN CORPUSCULAR VOLUME 90.6 FL (78-98); MEAN PLATELET VOLUME 7.2 FL (7.4-10.4); MONOCYTES # (AUTO) 0.6 X10'3 (0-0.9); MONOCYTES % (AUTO) 9.6 % (2-12); NEUTROPHILS % (AUTO) 66.2 % (42-75); PLATELET COUNT 179 X10'3 (140-440); RED BLOOD COUNT 4.56 X10'6 (4.70-6.10); RED CELL DISTRIBUTION WIDTH 14.6 % (11.5-14.5)
[2020-02-29 11:42] LABS: ALANINE AMINOTRANSFERASE 22 U/L (12-78); ALBUMIN 3.5 G/DL (3.4-5.0); ALBUMIN/GLOBULIN RATIO 1.1 (1.1-1.5); ALKALINE PHOSPHATASE 91 IU/L (46-116); ANION GAP 8 (8-16); ASPARTATE AMINO TRANSFERASE 19 U/L (10-37); BILIRUBIN,TOTAL 0.4 MG/DL (0.1-1.0); BLOOD UREA NITROGEN 15 MG/DL (7-18); BUN/CREATININE RATIO 16.9 (5.4-32.0); CHLORIDE 105 MMOL/L (99-107); CREATININE 0.89 MG/DL (0.60-1.10); GLUCOSE 100 MG/DL (70-104); SODIUM 144 MMOL/L (135-145); TOTAL PROTEIN 6.8 G/DL (6.4-8.2); eGFR 86 ML/MIN
[2020-02-29 12:08] LABS: C-REACTIVE PROTEIN 0.21 MG/DL (0.0-0.5)
[2020-02-29 12:26] VITALS: BP 134/92
[2020-02-29] MEDS ORDERED: dexamethasone sod phosphate 10mg/ml inj IV STA ×2 (12:29→12:33)
[2020-02-29] MEDS ORDERED: PRED20TA PO (12:32)
== END 2020-02-29 12:55 | disposition home or self-care (01) ==
LOC: ER 10:44
DX: J44.1 Chronic obstructive pulmonary disease with (acute) exacerbation (principal); I48.91 Unspecified atrial fibrillation; I25.10 Atherosclerotic heart disease of native coronary artery without angina pectoris; E78.00 Pure hypercholesterolemia, unspecified; I10 Essential (primary) hypertension; I25.2 Old myocardial infarction; G89.29 Other chronic pain; Z86.69 Personal history of other diseases of the nervous system and sense organs; Z98.61 Coronary angioplasty status; Z98.890 Other specified postprocedural states; Z79.899 Other long term (current) drug therapy
CPT/HCPCS: 36415; 71045; 80053; 83605; 84484; 85025; 86140; 87040; 93005; 96374; 99285; J1100

== ENCOUNTER 2020-09-20 12:09 | Day surgery (SDC) | payer OTHER ==
[2020-09-20] VITALS (7 sets, daily range): BP systolic 121–147; BP diastolic 62–87
[~2020-09-20] VITALS: Ht 182.9 cm; Wt 125.1 kg
[2020-09-20] MEDS ORDERED: diphenhydrAMINE 25mg capsule PO PRN (12:35)
[2020-09-20] MEDS ORDERED: normal saline 1,000 ML IV SCH (12:35)
[2020-09-20] MEDS ORDERED: LORazepam 0.5 MG tablet PO PRN (12:35)
[2020-09-20 12:59] LABS: BASOPHILS % (AUTO) 0.4 % (0-1); EOSINOPHILS # (AUTO) 0.5 X10'3 (0-0.9); EOSINOPHILS % (AUTO) 7.8 % (0-6); HEMATOCRIT 37.1 % (42.0-52.0); HEMOGLOBIN 12.2 g/dl (14.0-17.9); LYMPHOCYTES # (AUTO) 0.8 X10'3 (1.1-4.8); LYMPHOCYTES % (AUTO) 12.1 % (21-51); MEAN CORPUSCULAR HEMOGLOBIN 29.7 PG (27.0-31.0); MEAN CORPUSCULAR HGB CONC 32.9 g/dL (33.0-36.5); MEAN CORPUSCULAR VOLUME 90.3 FL (78-98); MEAN PLATELET VOLUME 6.9 FL (7.4-10.4); MONOCYTES # (AUTO) 0.7 X10'3 (0-0.9); MONOCYTES % (AUTO) 10.6 % (2-12); NEUTROPHILS # (AUTO) 4.7 X10'3 (1.8-7.7); NEUTROPHILS % (AUTO) 69.1 % (42-75); PLATELET COUNT 171 X10'3 (140-440); RED BLOOD COUNT 4.11 X10'6 (4.70-6.10); RED CELL DISTRIBUTION WIDTH 14.1 % (11.5-14.5); WHITE BLOOD COUNT 6.8 X10'3 (4.5-11.0)
[2020-09-20] MEDS ORDERED: TIOT4MIS3 INH (13:12)
[2020-09-20] MEDS ORDERED: ATOR40TA PO (13:12)
[2020-09-20] MEDS ORDERED: BUDE10.2 INH (13:12)
[2020-09-20] MEDS ORDERED: OMEP-50 PO (13:12)
[2020-09-20] MEDS ORDERED: FLO0.4C PO (13:12)
[2020-09-20] MEDS ORDERED: FINA5TAB11 PO (13:12)
[2020-09-20] MEDS ORDERED: FLUT16SP11 BOTHNARES (13:12)
[2020-09-20] MEDS ORDERED: CARV25TA PO (13:12)
[2020-09-20] MEDS ORDERED: ALBU8.5H8 INH (13:12)
[2020-09-20] MEDS ORDERED: LISI-604 PO (13:12)
[2020-09-20 13:32] LABS: ALBUMIN 3.5 G/DL (3.4-5.0); ANION GAP 6 (8-16); BLOOD UREA NITROGEN 15 MG/DL (7-18); BUN/CREATININE RATIO 20.3 (5.4-32.0); CALCIUM 9.2 MG/DL (8.5-10.1); CHLORIDE 104 MMOL/L (99-107); CREATININE 0.74 MG/DL (0.60-1.10); GLUCOSE 107 MG/DL (70-104); POTASSIUM 4.1 MMOL/L (3.5-5.1); SODIUM 143 MMOL/L (135-145); TOTAL CARBON DIOXIDE 33.4 MMOL/L (24-32); eGFR > 90 ML/MIN
[2020-09-20] MEDS ORDERED: proCHLORperazine 10 MG/2 ml inj ONE (13:43)
[2020-09-20] MEDS ORDERED: fentaNYL/PF 50MCG/1 ML 2ML syringe ONE (13:43)
[2020-09-20] MEDS ORDERED: verapamil 2.5 mg/ml inj IV ONE (13:43)
[2020-09-20] MEDS ORDERED: midazolam 2 mg/2 ml injection ONE (13:43)
[2020-09-20] MEDS ORDERED: LIDOcaine 1% (10mg/ml)w/preservative injection 20ml MDV ONE (13:43)
[2020-09-20] MEDS ORDERED: nitroGLYCERIN-Tridil 50MG/D5W 250 ML IV ONE (13:43)
[2020-09-20] MEDS ORDERED: iohexol 350MG/ML 100ml bottle IV ONE (13:44)
[2020-09-20] MEDS ORDERED: heparin 1,000unit/ml 10ml vial 10 ML ONE (13:44)
[2020-09-20] MEDS ORDERED: OXAZEpam 15mg capsule PO PRN (14:50)
[2020-09-20] MEDS ORDERED: proCHLORperazine 10 MG/2 ml inj IV PRN (14:50)
[2020-09-20] MEDS ORDERED: ondansetron/PF 4mg/2ml inj IV PRN (14:50)
[2020-09-20] MEDS ORDERED: HYDROcodone/acetaminophen 5mg/325mg tablet PO PRN (14:50)
[2020-09-20] MEDS ORDERED: HYDROcodone/acetaminophen 10/325mg tab PO PRN (14:50)
== END 2020-09-20 16:55 | disposition home or self-care (01) ==
LOC: SSTAY O 12:09
PROVIDERS: ATTEND Internal Medicine Interventional Cardiology
DX: R94.39 Abnormal result of other cardiovascular function study (principal); I25.10 Atherosclerotic heart disease of native coronary artery without angina pectoris; E78.5 Hyperlipidemia, unspecified; I10 Essential (primary) hypertension; F17.290 Nicotine dependence, other tobacco product, uncomplicated; F12.90 Cannabis use, unspecified, uncomplicated; Z95.5 Presence of coronary angioplasty implant and graft; J44.9 Chronic obstructive pulmonary disease, unspecified; N40.0 Benign prostatic hyperplasia without lower urinary tract symptoms; I48.91 Unspecified atrial fibrillation; Z79.899 Other long term (current) drug therapy
CPT/HCPCS: 36415; 80048; 85025; 85610; 93005; 93458; 99152; 99153; C1769; C1894; J0780; J1644; J2001; J2250; J3010; J7030; Q0163; Q9967; A4620; A5120; A6258; J3490

== ENCOUNTER 2021-08-17 12:43 | Inpatient (IN) | payer OTHER ==
[~2021-08-17] VITALS: Ht 182.9 cm; Wt 109.1 kg
[~2021-08-17 12:43] MED LIST changes: +ALBU8.5H17 INH; -ALBU8.5H8 INH; +ATOR40TA PO; -ATOR40TA71 PO; +BUDE10.2 INH; -BUDE10.22 INH; +CARV25TA PO; -CARV6.252 PO; +FINA5TAB11 PO; +FLUT16SP11 BOTHNARES; -ISOS30TA6 PO; +ISOS30TA84 PO; -LACT1CAP26 PO; +LISI5TAB22 PO; -NITR0.4T48 SL; +OMEP-50 PO; -ROBDML PO; -TIOT4MIS3 IH; +TIOT4MIS3 INH
[2021-08-17 13:42] LABS: BASOPHILS % (AUTO) 0.2 % (0-1); EOSINOPHILS # (AUTO) 0.2 X10'3 (0-0.9); EOSINOPHILS % (AUTO) 2.5 % (0-6); HEMATOCRIT 37.6 % (42.0-52.0); HEMOGLOBIN 12.4 g/dl (14.0-17.9); LYMPHOCYTES # (AUTO) 0.8 X10'3 (1.1-4.8); LYMPHOCYTES % (AUTO) 10.8 % (21-51); MEAN CORPUSCULAR HEMOGLOBIN 29.2 PG (27.0-31.0); MEAN CORPUSCULAR VOLUME 88.5 FL (78-98); MEAN PLATELET VOLUME 7.2 FL (7.4-10.4); MONOCYTES # (AUTO) 0.6 X10'3 (0-0.9); MONOCYTES % (AUTO) 8.3 % (2-12); NEUTROPHILS # (AUTO) 5.9 X10'3 (1.8-7.7); NEUTROPHILS % (AUTO) 78.2 % (42-75); PLATELET COUNT 175 X10'3 (140-440); RED BLOOD COUNT 4.25 X10'6 (4.70-6.10); RED CELL DISTRIBUTION WIDTH 15.8 % (11.5-14.5); WHITE BLOOD COUNT 7.6 X10'3 (4.5-11.0)
[2021-08-17] MEDS ORDERED: AZIT-83 PO (13:53)
[2021-08-17] MEDS ORDERED: DOXY-1 PO (13:53)
[2021-08-17] MEDS ORDERED: LISI20TA28 PO (13:53)
[2021-08-17] MEDS ORDERED: CYAN-51 PO (13:53)
[2021-08-17] MEDS ORDERED: MONT-40 PO (13:53)
[2021-08-17] MEDS ORDERED: FLUT1DIS15 INH (13:53)
[2021-08-17] MEDS ORDERED: CHOL100025 PO (13:53)
[2021-08-17] MEDS ORDERED: CALC-336 PO (13:53)
[2021-08-17] MEDS ORDERED: DABI150C PO (13:53)
[2021-08-17] MEDS ORDERED: MULT-620 PO (13:53)
[2021-08-17] MEDS ORDERED: GUAI200T5 PO (13:53)
[2021-08-17] MEDS ORDERED: TIOT4MIS5 IH (13:53)
[2021-08-17] MEDS ORDERED: ATOR80TA PO (13:53)
[2021-08-17] MEDS ORDERED: BUDE0.5A3 NEB (13:53)
[2021-08-17] MEDS ORDERED: FLO0.4C PO (13:53)
[2021-08-17] MEDS ORDERED: DICL100G30 TOP (13:53)
[2021-08-17] MEDS ORDERED: CARV25TA2 PO (13:53)
[2021-08-17 13:59] LABS: ALANINE AMINOTRANSFERASE 35 U/L (12-78); ALBUMIN 3.2 G/DL (3.4-5.0); ALBUMIN/GLOBULIN RATIO 0.9 (1.1-1.5); ALKALINE PHOSPHATASE 127 IU/L (46-116); ANION GAP 8 (8-16); ASPARTATE AMINO TRANSFERASE 24 U/L (10-37); BILIRUBIN,TOTAL 0.4 MG/DL (0.1-1.0); BLOOD UREA NITROGEN 19 MG/DL (7-18); CALCIUM 8.9 MG/DL (8.5-10.1); CHLORIDE 106 MMOL/L (99-107); CREATININE 0.76 MG/DL (0.60-1.10); GLUCOSE 126 MG/DL (70-104); POTASSIUM 3.6 MMOL/L (3.5-5.1); SODIUM 142 MMOL/L (135-145); TOTAL CARBON DIOXIDE 28.4 MMOL/L (24-32); TOTAL PROTEIN 6.7 G/DL (6.4-8.2); eGFR > 90 ML/MIN
[2021-08-17] MEDS ORDERED: guaiFENesin 200 MG/10 ML oral syrup UD cup PO PRN (14:35)
[2021-08-17] MEDS ORDERED: DICLOFENAC SODIUM TOP PRN (14:35)
[2021-08-17] MEDS ORDERED: albuterol 2.5 MG/3 ML nebule NEB PRN (14:35)
[2021-08-17] MEDS ORDERED: magnesium 4gm in 100ml NS 100 ML IV PRN (15:00)
[2021-08-17] MEDS ORDERED: metoprolol tartrate 1mg/ml inj IV PRN (15:00)
[2021-08-17] MEDS ORDERED: bisacodyl 10mg suppository rectal RC PRN (15:00)
[2021-08-17] MEDS ORDERED: aminophylline 250mg/10ml inj. IV PRN (15:00)
[2021-08-17] MEDS ORDERED: HYDROcodone/acetaminophen 10/325mg tab PO PRN (15:00)
[2021-08-17] MEDS ORDERED: HYDROcodone/acetaminophen 5mg/325mg tablet PO PRN (15:00)
[2021-08-17] MEDS ORDERED: morphine 2 MG/ML inj. syringe IV PRN ×2 (15:00)
[2021-08-17] MEDS ORDERED: acetaminophen 650mg rectal suppository RC PRN (15:00)
[2021-08-17] MEDS ORDERED: diphenhydrAMINE 25mg capsule PO PRN (15:00)
[2021-08-17] MEDS ORDERED: acetaminophen 325mg tablet PO PRN ×2 (15:00)
[2021-08-17] MEDS ORDERED: nitroGLYCERIN 0.4mg SUBLingual tab SL PRN (15:00)
[2021-08-17] MEDS ORDERED: potassium CL 10mEq/100ml bag 100 ML IV PRN (15:00)
[2021-08-17] MEDS ORDERED: potassium Cl 20 mEq SR tablet PO PRN ×2 (15:00)
[2021-08-17] MEDS ORDERED: ondansetron/PF 4mg/2ml inj IV PRN (15:00)
[2021-08-17] MEDS ORDERED: mag hydrox/Alum hydrox/simeth 30ml oral suspension PO PRN (15:00)
[2021-08-17] MEDS ORDERED: magnesium 2GM in 50ml NS 50 ML IV PRN (15:00)
[2021-08-17] MEDS ORDERED: magnesium Cl slow-release 64mg tablet PO PRN (15:00)
[2021-08-17] MEDS ORDERED: regadenoson 0.4mg/5ml syringe IV ONE (15:00)
[2021-08-17] MEDS ORDERED: magnesium hydroxide 30ml (MOM) UD suspension PO PRN (15:00)
[2021-08-17 15:20] LABS: HEMOGLOBIN A1C 5.9 % (4.5-6.2)
--- NOTE | 2021-08-17 16:45 | NUR ---
Patient in room MED 308. I have received report from Maylin FERNANDEZ from ED and had the opportunity to ask questions and assume patient care.
--- NOTE | 2021-08-17 17:00 | NUR ---
Received pt from ED, A & O x4 and in no apparent distress. Pt has IV on left AC 20G, 18G on right is painful and requesting to remove it. Pt hooked up to Room/ECG monitor and O2 finger prove. Pt states he is in 0/10 pain and in no distress. Pt is very pleasant. NO wounds to be recorded. Pt resting. urinal was provided.
[2021-08-17 18:00] VITALS: BP 114/65
--- NOTE | 2021-08-17 18:12 | NUR ---
Patient in room MED 308. I have received report from CINTHIA FERNANDEZ and had the opportunity to ask questions and assume patient care.
--- NOTE | 2021-08-17 18:20 | NUR ---
Problems reprioritized. Patient report given, questions answered & plan of care reviewed with joe FERNANDEZ.
[2021-08-17] MEDS: carVEDilol 12.5mg tablet PO SCH (19:11)
[2021-08-17] MEDS ORDERED: methylPREDNISolone sod succ 125mg/2ml vial IV ONE (19:30)
[2021-08-17] MEDS: docusate sod 100mg capsule PO SCH (19:40)
[2021-08-17] MEDS: K and/or MAG REPLACEMENT MC SCH (19:40)
[2021-08-17] MEDS: dabigatran 150mg capsule PO SCH (19:41)
[2021-08-17] MEDS: cholecalciferol (vitamin D3) 1,000 unit (25mcg) tablet PO SCH (19:42)
[2021-08-17] MEDS: azithromycin 250mg tablet PO SCH (19:47)
[2021-08-17] MEDS: normal saline 1000ml 1,000 ML IV SCH (19:48)
[2021-08-17] MEDS: CefTRIAXone/D5W-Rocephin 1gm 50 ML IV SCH (19:54)
[2021-08-17] MEDS ORDERED: budesonide 0.5mg/2ml UD nebule IH SCH (20:00)
[2021-08-17] MEDS ORDERED: montelukast 10mg tablet PO SCH (21:00)
[2021-08-17] MEDS: budesonide 0.5mg/2ml UD nebule IH SCH (21:11)
[2021-08-17 22:00] VITALS: BP 90/46
--- NOTE | 2021-08-17 22:30 | NUR ---
bp low, map 58, gave 250cc nursing bolus, bp then 94/46, map 61
[2021-08-17] MEDS: ipratropium/albuterol 3ml nebule NEB SCH (23:00)
[2021-08-18] VITALS (9 sets, daily range): BP systolic 96–140; BP diastolic 44–74
[2021-08-18 01:44] LABS: BASOPHILS % (AUTO) 0.2 % (0-1); EOSINOPHILS % (AUTO) 0.4 % (0-6); HEMATOCRIT 36.4 % (42.0-52.0); HEMOGLOBIN 12.3 g/dl (14.0-17.9); LYMPHOCYTES # (AUTO) 0.5 X10'3 (1.1-4.8); LYMPHOCYTES % (AUTO) 9.1 % (21-51); MEAN CORPUSCULAR HEMOGLOBIN 29.7 PG (27.0-31.0); MEAN CORPUSCULAR HGB CONC 33.8 g/dL (33.0-36.5); MEAN CORPUSCULAR VOLUME 87.8 FL (78-98); MEAN PLATELET VOLUME 7.3 FL (7.4-10.4); MONOCYTES # (AUTO) 0.1 X10'3 (0-0.9); MONOCYTES % (AUTO) 1.2 % (2-12); NEUTROPHILS # (AUTO) 4.4 X10'3 (1.8-7.7); NEUTROPHILS % (AUTO) 89.1 % (42-75); PLATELET COUNT 156 X10'3 (140-440); RED BLOOD COUNT 4.15 X10'6 (4.70-6.10); RED CELL DISTRIBUTION WIDTH 15.2 % (11.5-14.5); WHITE BLOOD COUNT 4.9 X10'3 (4.5-11.0)
[2021-08-18 01:59] LABS: ALANINE AMINOTRANSFERASE 32 U/L (12-78); ALBUMIN 3.1 G/DL (3.4-5.0); ALBUMIN/GLOBULIN RATIO 0.9 (1.1-1.5); ALKALINE PHOSPHATASE 122 IU/L (46-116); ANION GAP 8 (8-16); ASPARTATE AMINO TRANSFERASE 21 U/L (10-37); BILIRUBIN,TOTAL 0.3 MG/DL (0.1-1.0); BLOOD UREA NITROGEN 18 MG/DL (7-18); BUN/CREATININE RATIO 23.7 (5.4-32.0); CALCIUM 8.8 MG/DL (8.5-10.1); CHLORIDE 107 MMOL/L (99-107); CREATININE 0.76 MG/DL (0.60-1.10); GLUCOSE 150 MG/DL (70-104); POTASSIUM 4.1 MMOL/L (3.5-5.1); SODIUM 140 MMOL/L (135-145); TOTAL CARBON DIOXIDE 24.7 MMOL/L (24-32); TOTAL PROTEIN 6.7 G/DL (6.4-8.2); eGFR > 90 ML/MIN
[2021-08-18] MEDS: methylPREDNISolone sod succ 125mg/2ml vial IV SCH ×2 (02:01→07:49)
[2021-08-18 02:02] LABS: CHOLESTEROL 129 MG/DL (0-200); HDL CHOLESTEROL 43 MG/DL (35-60); LDL CHOLESTEROL 71 MG/DL (50-100); MAGNESIUM 2.1 MG/DL (1.5-2.4); PHOSPHORUS 3.1 MG/DL (2.3-4.5); TRIGLYCERIDES 54 MG/DL (20-135)
[2021-08-18] MEDS: ipratropium/albuterol 3ml nebule NEB SCH ×4 (03:00→15:15)
--- NOTE | 2021-08-18 06:12 | NUR ---
Problems reprioritized. Patient report given, questions answered & plan of care reviewed with YSABEL FERNANDEZ.
--- NOTE | 2021-08-18 06:52 | NUR ---
Patient in room MED 308. I have received report from Divine FERNANDEZ and had the opportunity to ask questions and assume patient care.
[2021-08-18] MEDS: CefTRIAXone/D5W-Rocephin 1gm 50 ML IV SCH (07:46)
[2021-08-18] MEDS: dabigatran 150mg capsule PO SCH (07:47)
[2021-08-18] MEDS: cholecalciferol (vitamin D3) 1,000 unit (25mcg) tablet PO SCH (07:51)
[2021-08-18] MEDS: azithromycin 250mg tablet PO SCH (07:51)
[2021-08-18] MEDS: docusate sod 100mg capsule PO SCH (07:53)
[2021-08-18] MEDS: carVEDilol 12.5mg tablet PO SCH (07:55)
[2021-08-18] MEDS ORDERED: atorvastatin 20mg tablet PO SCH (08:00)
[2021-08-18] MEDS ORDERED: cyanocobalamin 500mcg tablet PO SCH (08:00)
[2021-08-18] MEDS ORDERED: calcium carbonate 500mg chew tablet PO SCH (08:00)
[2021-08-18] MEDS ORDERED: ipratropium 0.5 MG/2.5ML nebule NEB SCH ×2 (08:00→11:19)
[2021-08-18] MEDS: K and/or MAG REPLACEMENT MC SCH (08:00)
[2021-08-18] MEDS ORDERED: lisinopril 20mg tablet PO SCH (08:00)
[2021-08-18] MEDS ORDERED: isosorbide mononitrate 30mg tab.SR.24H PO SCH (08:00)
[2021-08-18] MEDS ORDERED: fluticasone nasal spray 16GM bottle NS SCH (08:00)
[2021-08-18] MEDS ORDERED: clopidogrel 75mg tablet PO SCH (08:00)
[2021-08-18] MEDS ORDERED: finasteride 5mg tablet PO SCH (08:00)
[2021-08-18] MEDS ORDERED: tamsulosin 0.4mg capsule PO SCH (08:00)
[2021-08-18] MEDS ORDERED: multivitamins, therapeutics tablet PO SCH (08:00)
[2021-08-18] MEDS: budesonide 0.5mg/2ml UD nebule IH SCH (08:31)
[2021-08-18] MEDS: normal saline 1000ml 1,000 ML IV SCH (08:46)
--- NOTE | 2021-08-18 09:30 | NUR ---
Pt is off floor to stress test
--- NOTE | 2021-08-18 12:52 | NUR ---
dR DIANE PAGED RE: STRESS RESULTS AND THE NEED TO FEED PATIENT AND PREP FOR DISCHARGE
[2021-08-18] MEDS ORDERED: CEFD300C3 PO (13:18)
[2021-08-18] MEDS ORDERED: AZI25OT PO (13:18)
[2021-08-18] MEDS ORDERED: PRED10TA23 PO (13:18)
--- NOTE | 2021-08-18 15:45 | NUR ---
pT LEFT WITH NO DISTRESS NOTED, IV REMOVED WITH CANULA INTACT, DISCHARGE INSTRUCTIONS GIVEN
== END 2021-08-18 15:40 | disposition home or self-care (01) | DRG 192 ==
LOC: ER 12:43 → ED HOLD 15:00 → MED 3N 17:00
PROVIDERS: ADMIT Family Medicine; ATTEND Family Medicine
PROC: 4A02XM4 Measurement of Cardiac Total Activity, External Approach (ICD-10-PCS; principal; 2021-08-18)
PROC: 3E073KZ Introduction of Other Diagnostic Substance into Coronary Artery, Percutaneous Approach (ICD-10-PCS; 2021-08-18)
DX: J44.1 Chronic obstructive pulmonary disease with (acute) exacerbation (principal); N40.0 Benign prostatic hyperplasia without lower urinary tract symptoms; K57.90 Diverticulosis of intestine, part unspecified, without perforation or abscess without bleeding; I48.91 Unspecified atrial fibrillation; E78.00 Pure hypercholesterolemia, unspecified; I25.10 Atherosclerotic heart disease of native coronary artery without angina pectoris; E78.5 Hyperlipidemia, unspecified; I10 Essential (primary) hypertension; Z79.01 Long term (current) use of anticoagulants; I25.2 Old myocardial infarction; Z79.02 Long term (current) use of antithrombotics/antiplatelets; Z79.899 Other long term (current) drug therapy; Z87.891 Personal history of nicotine dependence; Z95.5 Presence of coronary angioplasty implant and graft; Z90.49 Acquired absence of other specified parts of digestive tract
CPT/HCPCS: 36415; 71045; 78452; 80053; 80061; 83036; 83735; 83880; 84100; 84145; 84484; 85025; 87081; 93005; 93017; 93306; 94640; 94760; 97116; 97161; 97530; 99285; A9500; G0378; J0696; J2785; J2930; J7030

== ENCOUNTER 2025-06-10 08:16 | Inpatient (IN) | payer OTHER ==
[2025-06-07 11:31] LABS: MEAN PLATELET VOLUME 7.4 FL (7.4-10.4); PRE OP HEMATOCRIT 41.5 % (42.0-52.0); PRE OP HEMOGLOBIN 13.9 g/dL (14.0-17.9); PRE OP PLATELET COUNT 160 X10'3 (140-440); PRE OP WHITE BLOOD COUNT 6.2 10'3 (4.8-10.8); RED CELL DISTRIBUTION WIDTH 15.3 % (11.5-14.5)
[2025-06-07 11:35] LABS: LEUKOCYTE ESTERASE ,URINE NEGATIVE (Neg); NITRITES, URINE NEGATIVE (Neg); OCCULT BLOOD,URINE NEGATIVE (Neg)
[2025-06-07 11:42] LABS: UA COLLECTION TYPE NON-SPECIFIED
[2025-06-07 11:44] LABS: PRE OP INR 1.1 INR; PRE OP PARTIAL THROMB. TIME 31.0 SECONDS (22-32); PRE OP PROTIME 11.0 SECONDS (9.0-12.0)
[2025-06-07 11:45] LABS: CREATININE 0.72 MG/DL (0.60-1.10); PRE OP ALT 25 U/L (30-65); PRE OP ANION GAP 7 (8-16); PRE OP AST 22 U/L (10-37); PRE OP BILIRUB, TOTAL 0.4 MG/DL (0.0-1.0); PRE OP GLUCOSE 86 MG/DL (70-104); PRE OP POTASSIUM 4.2 MMOL/L (3.4-5.1); PRE OP SODIUM 144 MMOL/L (135-145); TOTAL CARBON DIOXIDE 30.2 MMOL/L (24-32); eGFR > 90 ML/MIN
--- NOTE | 2025-06-07 11:46 | ELECTROCARDIOGRAPH REPORT ---
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 IWONA Neal Measurements Intervals Soldier Rate: 66 P: 68 WI: 149 QRS: -8 QRSD: 97 T: 64 QT: 399 QTc: 418 Interpretive Statements Sinus rhythm Ventricular premature complex Electronically Signed On 06-07-2025 17:11:[address] IWONA Neal Please click the below link to view image of tracing.
--- NOTE | 2025-06-07 12:03 | RADIOLOGY REPORT ---
DI CHEST,TWO VIEWS CLINICAL HISTORY: pain COMPARISON: CHEST,SINGLE VIEW on DOS: 08/17/21, XRAY CHEST 1 VIEW on DOS: 08/17/21 TECHNIQUE: Frontal and lateral view of the chest was obtained FINDINGS: Lines and Tubes: None Lungs: No focal consolidation. Pleura: No effusion. No pneumothorax. Cardiomediastinal contours: Unremarkable Bones: No acute osseous abnormality. IMPRESSION: No acute cardiopulmonary disease.
[~2025-06-10] VITALS: Ht 182.9 cm; Wt 98.7 kg
[2025-06-10] VITALS (30 sets, daily range): BP systolic 90–125; BP diastolic 42–80; PULSE 52–104; RESP 12–19; TEMP 97.2–98.7; O2SAT 92–98
[2025-06-10] MEDS: ceFAZolin 2gm/dext,iso 50mL 50 ML IV ONE (05:30)
[~2025-06-10 08:16] MED LIST changes: +ALB0.5UD IH; -ATOR40TA PO; +ATOR80TA PO; +AZIT250T27 PO; -BUDE10.2 INH; +CALC-437 PO; -CARV25TA PO; +CARV25TA2 PO; +CHOL100025 PO; -CLOP75TA15 PO; +CYAN-104 PO; -FLO0.4C PO; -FLUT16SP11 BOTHNARES; +FLUT1BLS11 INH; -ISOS30TA84 PO; +LISI10TA27 PO; -LISI5TAB22 PO; +MONT-40 PO; +MULT-620 PO; -OMEP-50 PO; +TAMS-55 PO; -TIOT4MIS3 INH; +TIOT4MIS5 IH; +[UNRECOGNIZED DRUG - OTHER] PO; +ondansetron/PF 4mg/2ml inj IV PRN
[2025-06-10] MEDS: VANCOMYCIN/H2O 1.5g/300mL PB 300 ML IV ONE (09:06)
[2025-06-10] MEDS: ringers solution, lacted 1,000 ML IV SCH ×2 (09:07→10:50)
[2025-06-10] MEDS: albuterol 2.5 MG/3 ML nebule NEB ONE (09:29)
[2025-06-10] MEDS ORDERED: midazolam 1 mg/ML 2ml injection ONE (10:18)
[2025-06-10] MEDS ORDERED: fentaNYL/PF 50MCG/1 ML 2ML syringe ONE (10:18)
[2025-06-10] MEDS ORDERED: propofol inj 20 ML IV ONE (10:21)
[2025-06-10] MEDS ORDERED: heparin 1,000unit/ml 10ml vial 10 ML ONE (10:35)
[2025-06-10] MEDS ORDERED: rocuronium 10mg/ml inj IV ONE (10:35)
[2025-06-10] MEDS ORDERED: dexamethasone sod phosphate 4mg/ml inj. ONE (10:36)
[2025-06-10] MEDS ORDERED: ondansetron/PF 4mg/2ml inj ONE (10:38)
[2025-06-10] MEDS ORDERED: labetalol 20mg/4ml (5mg/ml) syringe IV PRN ×2 (10:50→11:05)
[2025-06-10] MEDS ORDERED: hydrALAZINE 20mg/ml inj. IV PRN ×2 (10:50→11:05)
[2025-06-10] MEDS ORDERED: fentaNYL/PF 50MCG/1 ML 2ML syringe IV PRN ×2 (10:50)
[2025-06-10] MEDS ORDERED: HYDROmorphone/PF 0.2 MG/ML SYRINGE IV PRN ×2 (10:50)
[2025-06-10] MEDS ORDERED: acetaminophen 1,000mg/100ml IV 100 ML IV PRN (10:50)
[2025-06-10] MEDS ORDERED: ondansetron/PF 4mg/2ml inj IV PRN ×2 (10:50→11:05)
[2025-06-10] MEDS ORDERED: magnesium sulf-water 4G/100mL 100 ML IV PRN (11:05)
[2025-06-10] MEDS ORDERED: potassium CL 10mEq/100ml bag 100 ML IV PRN (11:05)
[2025-06-10] MEDS ORDERED: pantoprazole 40mg Tablet.DR PO PRN (11:05)
[2025-06-10] MEDS ORDERED: potassium Cl 40MEQ/1/2NS 520ml 520 ML IV PRN (11:05)
[2025-06-10] MEDS ORDERED: ALPRAZolam 0.25mg tablet PO PRN (11:05)
[2025-06-10] MEDS ORDERED: docusate sod 100mg capsule PO PRN (11:05)
[2025-06-10] MEDS ORDERED: potassium Cl 20 mEq SR tablet PO PRN (11:05)
[2025-06-10] MEDS ORDERED: HYDROcodone/acetaminophen 5mg/325mg tablet PO PRN (11:05)
[2025-06-10] MEDS ORDERED: potassium Cl 20mEq/100mL bag 100 ML IV PRN (11:05)
[2025-06-10] MEDS ORDERED: potassium Cl 40MEQ/270ML bag 250 ML IV PRN (11:05)
[2025-06-10] MEDS ORDERED: magnesium sulf-water 2g/50mL 50 ML IV PRN (11:05)
--- NOTE | 2025-06-10 11:07 | OPERATIVE REPORT ---
Operative Report Providers to CC CC: MARY PYLE MD ~ Date of Procedure: Jun 10, 2025 Pre-Operative Diagnosis: Atrial Fibrillation with high bleeding risk Post-Operative Diagnosis SAME as PRE-Op Procedure Performed 1. Transseptal Puncture via MARY guidance 2. Left Atrial Appendogram 3. Left Atrial Appendage closure with 24mm Watchman FLX Pro Pro Device 4. Ultrasound guided access, right Femoral Vein Surgeon: Joanna Pyle MD Cupola Melting Supervisor n/a Anesthesiologist: Zach Duncan Type of Anesthesia: General Findings: Left Atrial appendage amenable to percutaneous closure. Complications None Prosthetics\\Implants used: 24mm Watchman Flx Pro Estimated Blood Loss: Minimal Specimen Removed: None Description of Procedure: The patient was brought to the laborer cement gun placing in a fasting state. They underwent General anesthesia. Ultrasound was used to guide access to the right femoral vein where two cassie-cross Perclose devices were placed and upsized to an 8Fr sheath. Heparin was given to maintain an ACT over 250 seconds. An 0.035" wire was advanced into the SVC. The 8Fr sheath was then removed and the 8.5Fr VersaCross Transseptal sheath was advanced into the SVC. The RF wire was then advanced to the tip of the sheath/dilator. Using MARY guidance, appropriate position of the tip of the sheath was determined and using an energized wire tip, advanced into the left atrium. The sheath and dilator were then advanced over the wire into the left atrium. Over the wire, the Versacross sheath was removed and exchanged for the Watchman Sheath. The wire and dilator were then removed and exchanged for a 5Fr pigtail catheter which was placed into the left atrial appendage and an appendogram performed in the REYES-Caudal position. There, ACT was confirmed to be therapeutic. The Watchman sheath was then advanced into the left atrial appendage over the pigtail catheter. Once appropriate position was determined, the pigtail was removed, the 24mm Watchman FLX device and delivery system were advanced into the tip of the sheath. The delivery system was advanced until an appropriate FLX ball was formed. The guide was then retracted and the Watchman device was unsheathed will full deployment in the appendage. Next, PASS criteria was performed confirming adequate positioning and anchoring(using a tug-test), sizing showing adequate compression, and no significant leak around the device. Another Appendogram was performed confirming placement. The device was then released from the delivery system. The guide and delivery system were removed and the perclose tied as well as the [id number] suture, ensuring adequate hemostasis. Mean LA Presssure: 11mmHg Contrast: 25cc ACT: 256s Device Compression: 16-25% RESULTS: 1. Successful Left-Atrial Appendage closure with a 24mm Watchman FLX Pro device 2. Right Femoral Vein access, closed with Perclose x 2 and Bwacch-ep-Lnbpu suture 3. Resume Pradaxa 150mg BID x 45days with repeat imaging at that time. If sealed without evidence of device related thrombosis, can stop OAC and start ASA 81mg QD indefinitely, plavix 75mg QD x 6 months. They will be watched in the recovery area until stable, then transferred to the telemetry at that time. JOANNA PYLE MD Jun 10, 2025 11:07
--- NOTE | 2025-06-10 11:35 | ELECTROCARDIOGRAPH REPORT ---
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 Manuela Pyle Measurements Intervals Alba Rate: 79 P: 63 MA: 152 QRS: 24 QRSD: 101 T: 62 QT: 411 QTc: 472 Interpretive Statements Sinus rhythm Electronically Signed On 06-14-2025 7:03:[address] Manuela Pyle Please click the below link to view image of tracing.
[2025-06-10] MEDS: sod chloride 0.9% 10ml flush syringe IV SCH (16:00)
[2025-06-10] MEDS: ceFAZolin 1GM/D5W- ADD-VANTAGE 50 ML IV SCH (16:58)
[2025-06-10] MEDS: normal saline 1000ml 1,000 ML IV SCH (17:30)
[2025-06-10] MEDS: cholecalciferol (vitamin D3) 1,000 unit (25mcg) tablet PO SCH (19:31)
[2025-06-10] MEDS: vancomycin/NS 1 GM ADD-VANTAGE 250 ML IV SCH (20:45)
[2025-06-11 02:00] VITALS: BP 93/48; PULSE 55; RESP 10; TEMP 97.2; O2SAT 97
[2025-06-11] MEDS: ceFAZolin 1GM/D5W- ADD-VANTAGE 50 ML IV SCH (02:36)
[2025-06-11 06:00] VITALS: BP 105/57; PULSE 65; RESP 12; TEMP 97.3; O2SAT 96
[2025-06-11 06:26] LABS: INR 1.1 INR; MEAN PLATELET VOLUME 7.3 FL (7.4-10.4); RED CELL DISTRIBUTION WIDTH 14.8 % (11.5-14.5)
[2025-06-11 06:42] LABS: CREATININE 0.71 MG/DL (0.60-1.10); PRO BRAIN NATRIURETIC PEPTIDE 270 PG/ML (0-125); TOTAL CARBON DIOXIDE 27.1 MMOL/L (24-32); eCRCL 109 ML/MIN; eGFR > 90 ML/MIN
--- NOTE | 2025-06-11 06:49 | RADIOLOGY REPORT ---
CHEST RADIOGRAPH Indication: s/p Watchman Technique: Single frontal view of the chest was obtained Comparison: DI CHEST,TWO VIEWS on DOS: 06/07/25 FINDINGS: Lines and Tubes: None Lungs: Bibasilar atelectasis. Pleura: No effusion. No pneumothorax. Cardiomediastinal contours: Unremarkable Bones: No acute osseous abnormality. IMPRESSION: 1. Bibasilar atelectasis.
--- NOTE | 2025-06-11 07:37 | ELECTROCARDIOGRAPH REPORT ---
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 Manuela Pyle Measurements Intervals Hart Rate: 51 P: 74 KS: 153 QRS: -2 QRSD: 101 T: 47 QT: 439 QTc: 405 Interpretive Statements Sinus rhythm Atrial premature complex Electronically Signed On 06-14-2025 7:07:[address] Manuela Pyle Please click the below link to view image of tracing.
[2025-06-11] MEDS: calcium carbonate 500mg tablet PO SCH (07:47)
[2025-06-11] MEDS: cyanocobalamin 500mcg tablet PO SCH (07:48)
[2025-06-11 08:30] VITALS: RESP 20; O2SAT 99
[2025-06-11 11:00] VITALS: BP 108/62; PULSE 62; RESP 21; TEMP 97.4; O2SAT 99
[2025-06-11 15:00] VITALS: BP 115/61; PULSE 77; RESP 18; TEMP 97.7; O2SAT 95
--- NOTE | 2025-06-11 15:08 | DISCHARGE SUMMARY ---
Discharge Summary Providers to CC ~ Discharge Summary Admission Diagnosis: Atrial Fibrillation with high bleeding risk Hospital Course DATE OF ADMISSION: 06/10/25 DATE OF DISCHARGE: 06/11/25 Discharge Diagnosis\Comment: Atrial fibrillation with high-risk for bleeding status post left atrial appe ndage occlusion Operations\Procedures: 1. Transseptal Puncture via MARY guidance 2. Left Atrial Appendogram 3. Left Atrial Appendage closure with 24mm Watchman FLX Pro Pro Device 4. Ultrasound guided access, right Femoral Vein Consultants: No consultants Complications: No complications Condition on DC: Stable Continued Medications: Albuterol Sulfate (Proair Hfa) 1 Puff Inh 1 PUFFS INH Q4HPRN PRN for wheezing for 21 Days, #1 INHALER 0 Refills Albuterol Sulfate Nebs* (Proventil Nebs*) 2.5 Mg/0.5 Ml Vial.neb 2.5 MG IH Q8H PRN for SOB or wheezing Atorvastatin Calcium (Lipitor) 80 Mg Tablet 1 TAB PO DAILY Azithromycin (Azithromycin) 250 Mg Tablet 1 TAB PO MWF Calcium Carbonate (Calcium Carbonate) 500 Mg Tablet 1000 MG PO DAILY Carvedilol (Carvedilol) 25 Mg Tablet 1 TAB PO Q12H for 30 Days, #60 TAB Cholecalciferol (Vitamin D) 1,000 Unit Tablet 1 TAB PO BID Cyanocobalamin (Vitamin B-12) 1,000 Mcg Tablet 1 TAB PO DAILY, TAB Dabigatran (PRADAXA capsule) 150 Mg Capsule 1 CAP PO BID, CAP Finasteride (Finasteride) 5 Mg Tablet 1 TAB PO DAILY Fluticasone Propion/Salmeterol (Wixela 500-50 Inhub) 500 Mcg-50 Mcg/Dose Blst.w.dev 1 PUFFS INH Q12H Lisinopril (Lisinopril) 10 Mg Tablet 1 TAB PO HS [Marco Coq10] () 100 MG PO DAILY Montelukast Sodium (Montelukast Sodium) 10 Mg Tablet 1 TAB PO HS, TAB Multivitamins (Multivitamins) 1 Each Tablet 1 TAB PO DAILY Tamsulosin Hcl* (Flomax*) 0.4 Mg Cap.sr.24h 1 CAP PO HS Tiotropium [place] (Spiriva Respimat) 4 Gm Mist.inhal 2 PUFFS IH DAILY Discharge Summary: Patient presented for planned left atrial appendage occlusion. Underwent placement of a 24 mm watchman device. Please see Dr. Anthony Pyle's dictation for further details on the procedure. Was monitored overnight in the telemetry unit. Remained hemodynamically stable. Has been up and ambulatory with no com plaints of chest pain or pressure. No shortness a breath. No dizziness, lightheadedness or syncope. Postoperative testing was reviewed and patient was deemed stable for discharge. Physical exam prior to discharge: General: Awake, alert, oriented. No apparent distress Neck: Supple. Normal range of motion. No JVD Respiratory: Lungs are clear to auscultation bilaterally. No respiratory distress. Chest: Normal shape and size. No accessory muscle use. Cardiovascular: Regular rate and rhythm. S1-S2. No murmur, gallop, rub. Gastrointestinal: Abdomen is soft. Nontender to palpation. Bowel sounds present. Extremities: No lower extremity edema, cyanosis or clubbing. Femoral cath site is without bleeding or hematoma. Neurologic: Alert and oriented x4. Nonfocal Psychiatric: Normal mood and affect. Skin: Normal color. Warm and dry. Plan: Patient is being discharged home in stable condition. He will follow up as scheduled. He will continue oral anticoagulation as prescribed. Activity restrictions reviewed. Case discussed with Dr. Anthony Pyle who is in agreement with discharge home. *Problems/Diagnosis: (1) Afib Status: Chronic Total Time Spent on D/C: Up to 30 Minutes Counseling Services Smoking & Tobacco Cessation: N/A MADELYN COLIN NP Jun 11, 2025 15:08
--- NOTE | 2025-06-11 19:34 | CARDIOLOGY REPORT ---
APPROVED REPORT EXAM: Focused, limited intraprocedural transesophageal 2D, spectral and color flow Doppler echocardiogram during WATCHMAN deployment. 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 Overall systolic function is normal. LVEF is 65%. RIGHT VENTRICLE RV is normal size and function. ATRIA LA appears moderately dilated. Small funnel shaped appendage without thrombus detected. Left upper pulmonary vein identified. Intact interatrial septum. Width / length averages are: 0degr - x mm; 32huwj5.9 x 15 mm; 90degr 0.8 x 13 mm; 135degr 0.8 x 1.1 [address] 26: Septal tenting visualized with RF atrial septal puncture performed. Loop26: Wire in LA. Pigtail advanced to tip of appendage. LA pressure is measured at:11 mmHG. Appendagram performed. Loop32: Flex ball deployed. 24 mm Watchman FLX device, PASS criteria attempted - successfully. Loop 34 : Successful "TUG" test performed. PASS reassessed. Optimal compression obtained - shoulder to shoulder measurement is: 19.0 mm. Loop47 : Device released, sheath pulled back across interatrial septum. Patent interatrial septum with small residual bidirectional shunt (s/p transseptal puncture). Successfully occluded left atrial appendage with Watchman device well positioned without thrombus. No residual flow around device detected. No pericardial effus ion post-implant. GREAT VESSELS Mild atherosclerotic plaque is present in the ascending aorta. PERICARDIUM Normal pericardium. No effusion. CONCLUSION Normal LV size and wall thickness. Overall systolic function is normal. LVEF is 65%. RV is normal size and function. LA appears moderately dilated. Small funnel shaped appendage without thrombus detected. Left upper pulmonary vein identified. Intact interatrial septum. Width / length averages are: 0degr - x mm; 10nprg0.9 x 15 mm; 90degr 0.8 x 13 mm; 135degr 0.8 x 1.1 mm. Loop 26: Septal tenting visualized with RF atrial septal puncture performed. Loop26: Wire in LA. Pigtail advanced to tip of appendage. LA pressure is measured at:11 mmHG. Appendagram performed. Loop32: Flex ball deployed. 24 mm Watchman FLX device, PASS criteria attempted - successfully. Loop 34 : Successful "TUG" test performed. PASS reassessed. Optimal compression obtained - shoulder to shoulder measurement is: 19.0 mm. Loop47 : Device released, sheath pulled back across interatrial septum. Patent interatrial septum with small residual bidirectional shunt (s/p transseptal puncture). Successfully occluded left atrial appendage with Watchman device well positioned without thrombus. No residual flow around device detected. No pericardial effusion post-implant. Mild atherosclerotic plaque is present in the ascending aorta. Normal pericardium. No effusion. Conclusion Normal LV size and wall thickness. Overall systolic function is normal. LVEF is 65%. RV is normal size and function. LA appears moderately dilated. Small funnel shaped appendage without thrombus detected. Left upper pulmonary vein identified. Intact interatrial septum. Width / length averages are: 0degr - x mm; 13czqu7.9 x 15 mm; 90degr 0.8 x 13 mm; 135degr 0.8 x 1.1 mm. Loop 26: Septal tenting visualized with RF atrial septal puncture performed. Loop26: Wire in LA. Pigtail advanced to tip of appendage. LA pressure is measured at:11 mmHG. Appendagram performed. Loop32: Flex ball deployed. 24 mm Watchman FLX device, PASS criteria attempted - successfully. Loop 34 : Successful "TUG" test performed. PASS reassessed. Optimal compression obtained - shoulder to shoulder measurement is: 19.0 mm. Loop47 : Device released, sheath pulled back across interatrial septum. Patent interatrial septum with small residual bidirectional shunt (s/p transseptal puncture). Successfully occluded left atrial appendage with Watchman device well positioned without thrombus. No residual flow around device detected. No pericardial effusion post-implant. Mild atherosclerotic plaque is present in the ascending aorta. Normal pericardium. No effusion.
--- NOTE | 2025-06-11 19:44 | CARDIOLOGY REPORT ---
APPROVED REPORT EXAM: Limited 2D, Doppler, and color-flow Echocardiogram. Patient Location: [facility] Blood Pressure: 105/57 mmHg Heart Rate: 58 bpm Rhythm: Sinus Bradycardia Indications One day Watchman FLX Closure Device follow up 24 mm Watchman FLX Closure Device Log Snaker is Kim Pyle MD Previous echo 06/10/25 [facility] EF 65; Intact interatrial septum with small bidirectional shunt s/p transeptal puncture 2D Dimensions IVC 16.98 mm Tricuspid Valve TR P. Velocity 311 cm/s RAP ESTIMATE 10 mmHg TR Peak Gr. 39 mmHg RVSP 49 mmHg LEFT VENTRICLE LV appears normal in size and thickness. Overall systolic function appears normal. LVEF is 60%. RIGHT VENTRICLE RVSP is estimated at 49 mmHG. ATRIA LA is moderately dilated. Mobile/intact interatrial septum with (small) predominantly L to R shunt s/p transseptal puncture by color and spectral Doppler. TRICUSPID VALVE The tricuspid valve is normal in structure. Mild to moderate tricuspid regurgitation. GREAT VESSELS The IVC is normal in size and collapses >50% with inspiration. PERICARDIUM Trivial anterior pericardial effusion with no evidence of hemodynamic compromise. Other Information Study Quality: Adequate Conclusion LV appears normal in size and thickness. Overall systolic function appears normal. LVEF is 60%. RVSP is estimated at 49 mmHG. LA is moderately dilated. Mobile/intact interatrial septum with (small) predominantly L to R shunt s/p transseptal puncture by color and spectral Doppler. The tricuspid valve is normal in structure. Mild to moderate tricuspid regurgitation. Trivial anterior pericardial effusion with no evidence of hemodynamic compromise.
== END 2025-06-11 17:17 | disposition home or self-care (01) | DRG 274 ==
LOC: UNDOADMIN 08:16 → PAS IN 08:16 → PCU 3S 15:18 → PAS IN 15:18
PROVIDERS: ADMIT Student in an Organized Health Care Education/Training Program; ATTEND Student in an Organized Health Care Education/Training Program
PROC: B24BZZ4 Ultrasonography of Heart with Aorta, Transesophageal (ICD-10-PCS; 2025-06-10)
PROC: 02L73DK Occlusion of Left Atrial Appendage with Intraluminal Device, Percutaneous Approach (ICD-10-PCS; principal; 2025-06-10 10:13)
DX: I48.91 Unspecified atrial fibrillation (principal); Z00.6 Encounter for examination for normal comparison and control in clinical research program; Z79.01 Long term (current) use of anticoagulants
CPT/HCPCS: 33340; 36415; 71045; 71046; 76937; 80053; 81003; 82948; 83735; 83880; 85025; 85347; 85610; 85730; 86885; 86900; 86901; 86920; 93005; 93308; 93312; 93325; 94640; 94760; A4615; A4618; A6258; A6449; C1760; C1889; C1894; G0378; J0690; J1100; J1644; J2250; J2405; J2704; J3010; J3373; J3375; J3490; J7030; J7120; Q9967

== ENCOUNTER 2025-07-22 07:43 | Day surgery (SDC) | payer OTHER ==
[~2025-07-22] VITALS: Ht 182.9 cm; Wt 102.0 kg
[~2025-07-22 07:43] MED LIST changes: -ondansetron/PF 4mg/2ml inj IV PRN
[2025-07-22 08:15] VITALS: BP 150/88; PULSE 80; RESP 15; TEMP 98; O2SAT 95
[2025-07-22] MEDS: normal saline 1000ml 1,000 ML IV SCH (08:25)
[2025-07-22 08:26] LABS: MEAN PLATELET VOLUME 6.9 FL (7.4-10.4); RED CELL DISTRIBUTION WIDTH 15.0 % (11.5-14.5)
[2025-07-22 08:30] VITALS: RESP 15; O2SAT 98
[2025-07-22 08:34] LABS: CREATININE 0.66 MG/DL (0.60-1.10); TOTAL CARBON DIOXIDE 28.5 MMOL/L (24-32); eCRCL 116 ML/MIN; eGFR > 90 ML/MIN
[2025-07-22] MEDS ORDERED: midazolam 1 mg/ML 2ml injection ONE ×2 (08:34→09:56)
[2025-07-22 08:37] LABS: APTT 22 SECONDS (22-32); INR 1.1 INR
[2025-07-22 09:00] VITALS: BP 118/81; PULSE 76; RESP 17; O2SAT 94
[2025-07-22 09:15] VITALS: BP 97/62; PULSE 74; RESP 13; O2SAT 94
[2025-07-22 09:30] VITALS: BP 106/75; PULSE 72; RESP 12; O2SAT 95
[2025-07-22 09:40] VITALS: BP 113/62; PULSE 72; RESP 12; O2SAT 93
[2025-07-22] MEDS ORDERED: fentaNYL/PF 50MCG/1 ML 2ML syringe ONE (09:56)
--- NOTE | 2025-07-22 17:52 | CARDIOLOGY REPORT ---
APPROVED REPORT EXAM: Focused, limited transesophageal echocardiogram with color flow Doppler. 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 Overall systolic function is normal. LVEF is 65%. RIGHT VENTRICLE RV is normal size and function. ATRIA Left atrium appears at least moderately dilated. Slightly mobile/intact interatrial septum with trivial L to R shunt s/p transseptal puncture. Left upper pulmonary vein identified. Successfully occluded left atrial appendage with well visualized Watchman device well positioned without thrombus. No resi dual flow detected around device in all views. PERICARDIUM Normal pericardium. No effusion. Conclusion Normal LV size and wall thickness. Overall systolic function is normal. LVEF is 65%. RV is normal size and function. Left atrium appears at least moderately dilated. Slightly mobile/intact interatrial septum with trivial L to R shunt s/p transseptal puncture. Left upper pulmonary vein identified. Successfully occluded left atrial appendage with well visualized Watchman device well positioned without thrombus. No residual flow detected around device in all views. Normal pericardium. No effusion.
== END 2025-07-22 09:55 | disposition home or self-care (01) ==
LOC: SSTAY O 07:43
PROVIDERS: ATTEND Student in an Organized Health Care Education/Training Program
DX: I48.91 Unspecified atrial fibrillation (principal); E78.5 Hyperlipidemia, unspecified; F12.10 Cannabis abuse, uncomplicated; F10.10 Alcohol abuse, uncomplicated; I25.10 Atherosclerotic heart disease of native coronary artery without angina pectoris; I10 Essential (primary) hypertension; I25.2 Old myocardial infarction; J44.9 Chronic obstructive pulmonary disease, unspecified; N40.0 Benign prostatic hyperplasia without lower urinary tract symptoms; Z95.5 Presence of coronary angioplasty implant and graft; Z79.899 Other long term (current) drug therapy
CPT/HCPCS: 36415; 80048; 85025; 85610; 85730; 93312; 93325; J2250; J3010; J7030; 99152